=== PATIENT | male | born 1970 | race Caucasian/White ===

== ENCOUNTER 2023-05-01 15:44 | Inpatient (IN) ==
[2023-05-01] MEDS ORDERED: ONDANSETRON INJ 2 MG/ML 2 ML VIAL ONE (15:58)
[2023-05-01] MEDS ORDERED: ONDANSETRON INJ 2 MG/ML 2 ML VIAL IV STA (16:06)
[2023-05-01] MEDS ORDERED: SODIUM CHLORIDE 0.9% 500 ML IV STA (16:06)
[2023-05-01] MEDS ORDERED: LORazepam 2 MG/1 ML VIAL IV STA (16:17)
--- NOTE | 2023-05-01 16:23 | Emergency Department Note ---
Impression & Plan Cerebellar stroke, acute, Ataxia, Stroke-like symptom, Vertigo, Vomiting ED Provider Note NAME: JOHN PAUL ROY AGE: 53 SEX: M : 1970 ARRIVES VIA: Ambulance INFORMANT: Patient, EMS ED PROVIDER(S): Sukhi Peralta DO CHIEF COMPLAINT: Vomiting HPI: The patient is a 53-year-old male who presented to the emergency department for an evaluation of nausea vomiting. The patient states he was power washing at approximately 2 PM. He came inside and had an acute onset of nausea and vomiting. The patient notices that he has difficulty with balance. He denies having any abdominal pain or chest pain. He denies having any fever. He denies having lower extremity swelling or pain. He states his symptoms are moderate to severe. He was treated with Zofran prior to arrival by EMS and also by nursing prior to my evaluation. ROS: See above HPI for pertinent positives & negatives. A total of 10 systems reviewed and were otherwise negative. PAST MEDICAL HISTORY: See Below PAST SURGICAL HISTORY: See Below FAMILY HISTORY: See Below SOCIAL HISTORY: See Below HOME MEDICATIONS: See Below ALLERGIES: See Below VITALS: See Below PHYSICAL EXAMINATION: GENERAL: The patient is awake and alert. He is very anxious appearing. He is actively vomiting at times. EYES: The conjunctivae are clear. The pupils are round and reactive. Nystagmus was noted looking to the right. EARS, NOSE, MOUTH AND THROAT: The nose is without any evidence of any deformity. NECK: The neck is nontender and supple. RESPIRATORY: Normal respiratory effort is noted there is no evidence of wheezing rhonchi or rales CARDIOVASCULAR: Regular rate and rhythm noted there no murmurs rubs or gallops normal S1 normal S2. GASTROINTESTINAL: The abdomen is soft. Abdomen is nontender. MUSCULOSKELETAL/EXTREMITIES: There is no evidence of gross deformity full range of motion is noted in the hips and shoulders. SKIN: There is no obvious evidence of any rash. There are no petechiae, pallor or cyanosis noted. NEUROLOGIC: Patient is awake alert and oriented x3 strength is symmetric patellar reflexes are 2+ bilaterally. [id number] was normal. Gait was very ataxic falling to the right. There appeared to be a slight right-sided facial droop involving the corner of the mouth. MEDICAL DECISION MAKING: The patient is a 53-year-old male who presented to the emergency department with strokelike symptoms. The patient arrived via ambulance. He initially complained of nausea and vomiting. It was unclear but he was felt to be just suffering from vomiting. I evaluated the patient and felt the patient's symptoms could be secondary to stroke especially in the posterior fossa. The patient had trouble ambulating with ataxia. He also appeared to have a slight right-sided facial droop. The patient was made a stroke alert and went directly to CT. The patient was evaluated by the telestroke neurologist. He was felt to be a good candidate for TNK given his work-up as well as his debilitating findings. I discussed the patient's condition with the on-call [facility]. He was evaluated multiple times. Blood pressure was acceptable. Triage Nursing notes reviewed. Prior medical records reviewed Vital Signs: reviewed and remarkable for no significant abnormalities Differential diagnosis: Gastroenteritis, food borne illness, infections, appendicitis, diverticulitis, inflammatory bowel disease, obstruction, GI bleed, biliary pathology, volvulus, as well as other pathologies. ER treatment provided: See below Diagnostics interpreted by me: ECG: EKG was obtained in the emergency department. My interpretation is normal sinus rhythm at 64 bpm. There is no ectopy. There is no acute ST segment abnormalities noted. QTc was 472. No previous tracing was available. Cardiac Monitoring: An order was placed for continuous cardiac monitoring. The monitor shows a rate of 65 bpm with sinus rhythm. Laboratory studies: As stated above and show below. Imaging studies: See below. Radiographic imaging was reviewed by myself Consultation(s): I discussed this case with Dr. Hallman who is on for telestroke at [facility]. I discussed this case with Nilam who is on-call for the [facility] ED COURSE: Procedures: none Critical Care: I have personally spent greater than 45 minutes of critical care time in the direct management of this patient. This includes bedside care, interpretation of diagnostic studies, and testing, discussion with consultants, patient, and family members, and other required patient management activities. This 45 minutes is in excess of all separately billable procedures. Thrombolytics MDM Reason(s) for Delay: The patient arrived via ambulance for nausea and vomiting. It was not until the patient was evaluated by myself that he was felt to be suffering from strokelike symptoms. There was a delay in calling the stroke alert for this reason. The patient also required extensive discussion prior to administering TNK. There was discussion between myself the patient and Dr. Hallman at the same time given the patient's presentation he wanted to also discuss this with his children prior to receiving TNK. Ultimately the patient did agree to TNK and it was administered shortly after. Past Med/Surg History Medical History History of tobacco use Pancreatic mass Spinal stenosis Surgical History H/O splenectomy History of partial pancreatectomy History of tonsillectomy S/P cholecystectomy Family History Other Cancer Hypertension Social History Smoking Status: Never smoker Smoking End Date: 2020; Hx Alcohol Use: No Hx Substance Use: Yes Last Used Substance: Hours (ago) Last Used Substance Other:: 0900 used tincature drops Preferred Language: Moroccan Communication Ability: Effective Shipping Processor Required: No Beliefs That Will Affect Care: None Current Living Situation: Other Current Living Situation Comment: Lives with two children Other Information That Helps Us Care for You: No Feels Safe at Home: Yes Safety Concerns: Feels Safe At This Time Assistive Devices: None Allergies Allergies Allergy/AdvReac Type Severity Reaction Status Date / Time No Known Allergies Allergy Mild Verified 05/27/07 10:05 Home Meds Home Medications Medication Instructions Recorded Confirmed No Known Home Medications 05/01/23 05/01/23 Results & Data (ED) Vital Signs Vital Signs - 24 hr 05/01/23 16:07 05/01/23 16:07 05/01/23 16:07 Temperature 35.9 C L 35.9 C L Temperature Source Axillary Axillary Pulse Rate 74 Pulse Rate [Apical] Pulse Rate from SpO2 Sensor Respiratory Rate 20 20 Respiratory Effort / Characteristics Non-Labored Non-Labored Respiratory Depth Normal Normal Blood Pressure 134/73 Blood Pressure [Right Arm] Blood Pressure Mean 93 Blood Pressure Mean [Right Arm] Pulse Oximetry 99 99 99 Oxygen Delivery Method Room Air Room Air Room Air Sepsis Recent Fever Within 48 Hours No Sepsis New/Unexplained Change in Mental Status No Sepsis Action Taken by Nursing No Action Required 05/01/23 16:41 05/01/23 16:45 05/01/23 17:21 Temperature Temperature Source Pulse Rate 74 Pulse Rate [Apical] 75 78 Pulse Rate from SpO2 Sensor Respiratory Rate 20 20 Respiratory Effort / Characteristics Non-Labored Respiratory Depth Normal Blood Pressure Blood Pressure [Right Arm] 151/79 H 124/84 Blood Pressure Mean Blood Pressure Mean [Right Arm] 103 97 Pulse Oximetry 98 97 Oxygen Delivery Method Room Air Room Air Sepsis Recent Fever Within 48 Hours Sepsis New/Unexplained Change in Mental Status Sepsis Action Taken by Nursing 05/01/23 17:36 05/01/23 16:07 05/01/23 16:37 Temperature Temperature Source Pulse Rate 0 L Pulse Rate [Apical] 65 Pulse Rate from SpO2 Sensor 78 Respiratory Rate 20 27 H 37 H Respiratory Effort / Characteristics Non-Labored Respiratory Depth Normal Blood Pressure Blood Pressure [Right Arm] 105/67 Blood Pressure Mean Blood Pressure Mean [Right Arm] 79 Pulse Oximetry 94 99 Oxygen Delivery Method Room Air Sepsis Recent Fever Within 48 Hours Sepsis New/Unexplained Change in Mental Status Sepsis Action Taken by Nursing 05/01/23 16:39 05/01/23 16:39 05/01/23 16:45 Temperature Temperature Source Pulse Rate 81 76 Pulse Rate [Apical] Pulse Rate from SpO2 Sensor 82 Respiratory Rate 34 H 21 Respiratory Effort / Characteristics Respiratory Depth Blood Pressure 151/79 H Blood Pressure [Right Arm] Blood Pressure Mean 103 Blood Pressure Mean [Right Arm] Pulse Oximetry 100 Oxygen Delivery Method Sepsis Recent Fever Within 48 Hours Sepsis New/Unexplained Change in Mental Status Sepsis Action Taken by Nursing 05/01/23 17:04 05/01/23 17:15 05/01/23 17:17 Temperature Temperature Source Pulse Rate 64 64 Pulse Rate [Apical] Pulse Rate from SpO2 Sensor 65 62 Respiratory Rate 6 L 3 L Respiratory Effort / Characteristics Respiratory Depth Blood Pressure 150/88 H Blood Pressure [Right Arm] Blood Pressure Mean 108 Blood Pressure Mean [Right Arm] Pulse Oximetry 95 97 Oxygen Delivery Method Sepsis Recent Fever Within 48 Hours Sepsis New/Unexplained Change in Mental Status Sepsis Action Taken by Nursing 05/01/23 17:17 05/01/23 17:30 Temperature Temperature Source Pulse Rate 78 Pulse Rate [Apical] Pulse Rate from SpO2 Sensor 78 Respiratory Rate 22 Respiratory Effort / Characteristics Respiratory Depth Blood Pressure 124/84 Blood Pressure [Right Arm] Blood Pressure Mean 97 Blood Pressure Mean [Right Arm] Pulse Oximetry 98 Oxygen Delivery Method Sepsis Recent Fever Within 48 Hours Sepsis New/Unexplained Change in Mental Status Sepsis Action Taken by [facility]irement Medications Current Medication List: was personally reviewed by me Laboratory Data Attestation: I reviewed the patient's lab results. 05/01/23 14:20 05/01/23 14:20 Lab Results 05/01/23 05/01/23 05/01/23 Range/Units 14:20 14:20 14:20 WBC 13.68 H (4.8-10.8) K/ul RBC 4.20 L (4.70-6.10) M/uL Hgb 14.0 (14.0-18.0) g/dl POC Hgb (14.0-18.0) g/dl Hct 38.4 L (42.0-52.0) % POC Hct (42-52) % MCV 91.4 (80.0-100.0) fL MCH 33.3 (25.0-34.0) pg MCHC 36.5 H (32.0-36.0) g/dL RDW Std Deviation 41.2 (36.4-46.3) fL RDW Coeff of Josie 12.5 (11.5-14.5) % Plt Count 296 (130-400) K/uL MPV 9.7 (9.4-12.4) fL Immature Gran % (Auto) 0.4 % Neut % (Auto) 73.9 % Lymph % (Auto) 19.2 % Gilmer % (Auto) 5.8 % Eos % (Auto) 0.3 % Baso % (Auto) 0.4 % Neut # (Auto) 10.11 H (1.40-6.50) K/uL Lymph # (Auto) 2.63 (1.2-3.4) K/uL Gilmer # (Auto) 0.80 H (0.11-0.59) K/uL Eos # (Auto) 0.04 (0-0.50) K/uL Baso # (Auto) 0.05 (0-0.2) K/uL Immature Gran # (Auto) 0.05 (0.01-0.20) K/uL PT 11.5 (9.0-12.0) Seconds INR 1.1 (0.9-1.1) APTT 24.2 (21.0-31.0) Seconds PTT Ratio 0.9 POC Sodium (135-144) mmol/L Sodium 137 (136-145) mmol/L POC Potassium (3.3-5.0) mmol/L Potassium 3.5 (3.5-5.1) mmol/L POC Chloride (101-112) mmol/L Chloride 105 (98-107) mmol/L Carbon Dioxide 18 L (21-32) mmol/L POC Total CO2 (24-31) mmol/L Anion Gap 14 H (3-11) POC Anion Gap (16-25) mmol/L POC BUN (7-18) mg/dl BUN 9 (6-23) mg/dl Creatinine 0.84 (0.6-1.4) mg/dl POC Creatinine (0.6-1.3) mg/dl Est Cr Clr Drug Dosing 108.4 ml/min Est GFR ( Amer) 115.0 ml/min Est GFR (Non-Af Amer) 99.3 ml/min BUN/Creatinine Ratio 10.7 (10-20) Glucose 144 H (70-99(Fasting)) mg/dl POC Glucose (other) (70-99) mg/dl Calcium 9.1 (8.6-10.3) mg/dl POC Ioniz Calcium Scotty (1.12-1.32) mmol/l Magnesium 1.7 (1.7-2.4) mg/dl Total Bilirubin 0.8 (0.2-1.0) mg/dl AST 14 (13-39) U/L ALT 9 (7-52) U/L Alkaline Phosphatase 59 (34-104) U/L Troponin I High Sens 12.8 (0-20) pg/ml Total Protein 7.0 (6.0-8.3) gm/dl Albumin 4.1 (3.4-5.0) gm/dl Globulin 2.9 (2.5-4.0) gm/dl Albumin/Globulin Ratio 1.4 (0.9-2) Lipase 68 (11-82) U/L 05/01/23 Range/Units 16:23 WBC (4.8-10.8) K/ul RBC (4.70-6.10) M/uL Hgb (14.0-18.0) g/dl POC Hgb 13.9 L (14.0-18.0) g/dl Hct (42.0-52.0) % POC Hct 41 L (42-52) % MCV (80.0-100.0) fL MCH (25.0-34.0) pg MCHC (32.0-36.0) g/dL RDW Std Deviation (36.4-46.3) fL RDW Coeff of Josie (11.5-14.5) % Plt Count (130-400) K/uL MPV (9.4-12.4) fL Immature Gran % (Auto) % Neut % (Auto) % Lymph % (Auto) % Gilmer % (Auto) % Eos % (Auto) % Baso % (Auto) % Neut # (Auto) (1.40-6.50) K/uL Lymph # (Auto) (1.2-3.4) K/uL Gilmer # (Auto) (0.11-0.59) K/uL Eos # (Auto) (0-0.50) K/uL Baso # (Auto) (0-0.2) K/uL Immature Gran # (Auto) (0.01-0.20) K/uL PT (9.0-12.0) Seconds INR (0.9-1.1) APTT (21.0-31.0) Seconds PTT Ratio POC Sodium 138 (135-144) mmol/L Sodium (136-145) mmol/L POC Potassium 3.3 (3.3-5.0) mmol/L Potassium (3.5-5.1) mmol/L POC Chloride 105 (101-112) mmol/L Chloride (98-107) mmol/L Carbon Dioxide (21-32) mmol/L POC Total CO2 16 L (24-31) mmol/L Anion Gap (3-11) POC Anion Gap 22.0 (16-25) mmol/L POC BUN 8 (7-18) mg/dl BUN (6-23) mg/dl Creatinine (0.6-1.4) mg/dl POC Creatinine 0.8 (0.6-1.3) mg/dl Est Cr Clr Drug Dosing ml/min Est GFR ( Amer) ml/min Est GFR (Non-Af Amer) ml/min BUN/Creatinine Ratio (10-20) Glucose (70-99(Fasting)) mg/dl POC Glucose (other) 147 H (70-99) mg/dl Calcium (8.6-10.3) mg/dl POC Ioniz Calcium Scotty 1.00 L (1.12-1.32) mmol/l Magnesium (1.7-2.4) mg/dl Total Bilirubin (0.2-1.0) mg/dl AST (13-39) U/L ALT (7-52) U/L Alkaline Phosphatase (34-104) U/L Troponin I High Sens (0-20) pg/ml Total Protein (6.0-8.3) gm/dl Albumin (3.4-5.0) gm/dl Globulin (2.5-4.0) gm/dl Albumin/Globulin Ratio (0.9-2) Lipase (11-82) U/L Administered Medications Atorvastatin Calcium (Atorvastatin 40 Mg Tab) 40 mg PO HS [facility] Stop: 05/31/23 20:59 Last Admin: 05/01/23 19:21 Dose: 40 mg Documented By: CULLEN Magnesium Sulfate/Dextrose (Magnesium Sulfate / D5w) 1 gm in 100 mls @ 50 mls/hr IV Q2H [facility] Stop: 05/02/23 00:44 Last Admin: 05/01/23 19:14 Dose: 50 mls/hr Documented By: CULLEN Lactated Ringer's (Lr) 1,000 mls @ 90 mls/hr IV .Q11H7M [facility] Stop: 05/02/23 05:51 Last Admin: 05/01/23 19:14 Dose: 90 mls/hr Documented By: CULLEN Miscellaneous (Icu Protocol For Hyperglycemia) 1 each N/A ACHS [facility] Stop: 05/03/23 20:59 Last Admin: 05/01/23 20:05 Dose: 1 each Documented By: CULLEN Ondansetron HCl (Ondansetron Inj 2 Mg/Ml 2 Ml Vial) 4 mg IV Q4H PRN PRN Reason: Nausea Stop: 05/31/23 19:20 Last Admin: 05/01/23 19:55 Dose: 4 mg Documented By: CULLEN Discontinued Medications Gadobutrol (Gadobutrol 65ml Vial) 7 ml IV ONCE ONE Stop: 05/01/23 21:49 Last Admin: 05/01/23 21:30 Dose: 7 ml Documented By: FRENANDO Sodium Chloride (Nss) 500 mls @ 999 mls/hr IV .Q31M STA Stop: 05/01/23 16:36 Last Infusion: 05/01/23 16:44 Dose: 0 mls/hr Documented By: Admin: 05/01/23 16:10 Dose: 999 mls/hr Documented By: LILLIAN Tenecteplase 19 mg/ Syringe 3.8 mls @ 45.6 mls/min IV NOW ONE; Protocol Stop: 05/01/23 17:23 Last Admin: 05/01/23 17:20 Dose: 45.6 mls/min Documented By: PATEL Co-signed By: LEAH Ioversol (Ioversol 350 Mg 125ml Prefilled Syringe) 111 ml IV ONCE ONE Stop: 05/01/23 16:34 Last Admin: 05/01/23 16:33 Dose: 111 ml Documented By: CAROLE Lorazepam (Lorazepam 2 Mg/1 Ml Vial) 1 mg IV NOW STA Stop: 05/01/23 16:18 Last Admin: 05/01/23 16:36 Dose: 0.5 mg Documented By: LILLIAN Miscellaneous (Stat Iv) 1 each N/A NOW STA Stop: 05/01/23 17:13 Last Admin: 05/01/23 17:20 Dose: 1 each Documented By: PATEL Ondansetron HCl (Ondansetron Inj 2 Mg/Ml 2 Ml Vial) Confirm Administered Dose 4 mg .ROUTE .STK-MED ONE Stop: 05/01/23 15:59 Last Admin: 05/01/23 16:04 Dose: 4 mg Documented By: PATEL Ondansetron HCl (Ondansetron Inj 2 Mg/Ml 2 Ml Vial) 4 mg IV NOW STA Stop: 05/01/23 16:07 Last Admin: 05/01/23 16:10 Dose: 4 mg Documented By: LILLIAN Potassium Chloride (Potassium Chloride Crtab 20 Meq Tabcr) 20 meq PO NOW STA Stop: 05/01/23 19:15 Last Admin: 05/01/23 19:56 Dose: 20 meq Documented By: CULLEN Sodium Chloride (Sodium Chloride 0.9% 10ml Flush) 20 ml IV NOW STA Stop: 05/01/23 17:13 Last Admin: 05/01/23 17:20 Dose: 20 ml Documented By: PATEL Imaging Data Attestation: I personally reviewed and interpreted this imaging study as follows: My Impression: 1 view chest x-ray was obtained in the emergency department was obtained. My interpretation is no free air or definite infiltrate, final report below CT of the brain was obtained in the emergency department. My interpretation is no intracranial hemorrhage or mass effect, final report below. Radiologist's Impression: Chest X-Ray 05/01/23 16:15 XR chest 1V portable CLINICAL HISTORY: neuro deficit, acute stroke suspected TECHNIQUE: Single frontal radiograph of the chest was obtained. Comparison: None available at the time of this dictation. FINDINGS: No lines and tubes are seen. The cardiomediastinal silhouette is normal. The lungs are clear. No evidence of pleural effusion or pneumothorax. IMPRESSION: No acute chest disease. ACT 112: Negative or not required by law. Electronically signed by: Steven Garcia M.D. 05/01/2023 5:[address] 05/01/23 16:[address] OF THE BRAIN; CT ANGIOGRAM OF THE BRAIN; CT ANGIOGRAM OF THE NECK CLINICAL HISTORY: Neurological deficit. Stroke like symptoms. COMPARISON STUDY: No priors. TECHNIQUE: Unenhanced axial CT scan of the brain is performed. Subsequently, following the IV administration of 111 of Optiray 350, CT angiogram of the head and neck was performed from the aortic arch to the vertex. Images are reviewed in the axial, sagittal, and coronal planes. 3-D MIPS images are created and assessed. IV contrast was administered without complication. All measurements were calculated based on NASCET criteria. A dose lowering technique was utilized adhering to the principles of ALARA. CT DOSE: 1294.17 mGy.cm FINDINGS: Brain parenchyma: There is no hemorrhage, mass effect, or evidence of acute t erritorial ischemia by CT criteria. There is no evidence of enhancing mass lesion on the angiogram phase images. The ventricles, sulci, and cisterns are normal in configuration. Cisneros-white matter differentiation is preserved. There is a small chronic lacunar infarct in the left cerebellar hemisphere. No extra- axial fluid collection is seen. Thoracic aorta: Visualized portions of the thoracic aorta are normal in caliber. The aortic arch demonstrates standard 3-vessel anatomy. Right carotid arterial system: The right common carotid artery is widely patent, as are the right internal and external carotid arteries. Left carotid arterial system: The left common carotid artery is widely patent, as is the left internal and external carotid arteries. Vertebral arteries: The vertebral arteries are widely patent bilaterally noting right-sided dominance. The left vertebral artery is diminutive. Subclavian arteries: Widely patent bilaterally. Intracranial vasculature: There is moderate atherosclerotic calcification of the cavernous carotid arteries. The [place] of [place] is developmentally complete. The internal carotid arteries are patent at the skull base, as are the anterior and middle cerebral arteries bilaterally. The vertebrobasilar system and posterior cerebral arteries are widely patent. The right vertebral artery is dominant. The intracranial left vertebral artery is diminutive. There is no aneurysm, high-grade stenosis, or focal vessel cut off seen throughout the intracranial circulation. Jugular veins: Patent bilaterally. Dural sinuses: Patent. Lung apices: Partially visualized upper lobe lung parenchyma appears clear. Soft tissues: The visualized pharyngeal soft tissues are normal in appearance noting angiographic phase technique. The oropharyngeal airway appears widely patent. There are numerous bilateral thyroid nodules which measure up to 2.0 cm. Calcified sialoliths are noted in the right parotid gland. The salivary glands are otherwise normal in appearance. No cervical lymphadenopathy is seen. Skeletal structures: The calvarium appears intact. The cervical spine is maintained noting mild multilevel spondylosis. Orbits: The bony orbits are intact. Orbital contents are normal as visualized. Sinuses and mastoids: Retention cysts within the maxillary antra measure up to 3.2 cm. The remaining paranasal sinuses are clear. The mastoid air cells are well pneumatized. IMPRESSION: 1. There is no hemorrhage, mass effect, or evidence of acute territorial ischem ia by CT criteria. 2. Unremarkable CT angiogram of the brain. 3. Unremarkable CT angiogram of the neck. 4. Bilateral thyroid nodules measure up to 2 cm. Nonemergent thyroid ultrasound is recommended in follow-up. ACT 112: Negative or not required by law. Electronically signed by: Mac Killian M.D. 05/01/2023 4:52 PM Head CTA 05/01/23 16:[address] OF THE BRAIN; CT ANGIOGRAM OF THE BRAIN; CT ANGIOGRAM OF THE NECK CLINICAL HISTORY: Neurological deficit. Stroke like symptoms. COMPARISON STUDY: No priors. TECHNIQUE: Unenhanced axial CT scan of the brain is performed. Subsequently, following the IV administration of 111 of Optiray 350, CT angiogram of the head and neck was performed from the aortic arch to the vertex. Images are reviewed in the axial, sagittal, and coronal planes. 3-D MIPS images are created and assessed. IV contrast was administered without complication. All measurements were calculated based on NASCET criteria. A dose lowering technique was utilized adhering to the principles of ALARA. CT DOSE: 1294.17 mGy.cm FINDINGS: Brain parenchyma: There is no hemorrhage, mass effect, or evidence of acute territorial ischemia by CT criteria. There is no evidence of enhancing mass lesion on the angiogram phase images. The ventricles, sulci, and cisterns are normal in configuration. Cisneros-white matter differentiation is preserved. There is a small chronic lacunar infarct in the left cerebellar hemisphere. No extra- axial fluid collection is seen. Thoracic aorta: Visualized portions of the thoracic aorta are normal in caliber. The aortic arch demonstrates standard 3-vessel anatomy. Right carotid arterial system: The right common carotid artery is widely patent, as are the right internal and external carotid arteries. Left carotid arterial system: The left common carotid artery is widely patent, as is the left internal and external carotid arteries. Vertebral arteries: The vertebral arteries are widely patent bilaterally noting right-sided dominance. The left vertebral artery is diminutive. Subclavian arteries: Widely patent bilaterally. Intracranial vasculature: There is moderate atherosclerotic calcification of the cavernous carotid arteries. The [place] of [place] is developmentally complete. The internal carotid arteries are patent at the skull base, as are the anterior and middle cerebral arteries bilaterally. The vertebrobasilar system and posterior cerebral arteries are widely patent. The right vertebral artery is dominant. The intracranial left vertebral artery is diminutive. There is no aneurysm, high-grade stenosis, or focal vessel cut off seen throughout the intracranial circulation. Jugular veins: Patent bilaterally. Dural sinuses: Patent. Lung apices: Partially visualized upper lobe lung parenchyma appears clear. Soft tissues: The visualized pharyngeal soft tissues are normal in appearance noting angiographic phase technique. The oropharyngeal airway appears widely patent. There are numerous bilateral thyroid nodules which measure up to 2.0 cm. Calcified sialoliths are noted in the right parotid gland. The salivary glands are otherwise normal in appearance. No cervical lymphadenopathy is seen. Skeletal structures: The calvarium appears intact. The cervical spine is maintained noting mild multilevel spondylosis. Orbits: The bony orbits are intact. Orbital contents are normal as visualized. Sinuses and mastoids: Retention cysts within the maxillary antra measure up to 3.2 cm. The remaining paranasal sinuses are clear. The mastoid air cells are well pneumatized. IMPRESSION: 1. There is no hemorrhage, mass effect, or evidence of acute territorial ischemia by CT criteria. 2. Unremarkable CT angiogram of the brain. 3. Unremarkable CT angiogram of the neck. 4. Bilateral thyroid nodules measure up to 2 cm. Nonemergent thyroid ultrasound is recommended in follow-up. ACT 112: Negative or not required by law. Electronically signed by: Mac Killian M.D. 05/01/2023 4:52 PM Neck CTA 05/01/23 16:15 UNENHANCED CT OF THE BRAIN; CT ANGIOGRAM OF THE BRAIN; CT ANGIOGRAM OF THE NECK CLINICAL HISTORY: Neurological deficit. Stroke like symptoms. COMPARISON STUDY: No priors. TECHNIQUE: Unenhanced axial CT scan of the brain is performed. Subsequently, following the IV administration of 111 of Optiray 350, CT angiogram of the head and neck was performed from the aortic arch to the vertex. Images are reviewed in the axial, sagittal, and coronal planes. 3-D MIPS images are created and as sessed. IV contrast was administered without complication. All measurements were calculated based on NASCET criteria. A dose lowering technique was utilized adhering to the principles of ALARA. CT DOSE: 1294.17 mGy.cm FINDINGS: Brain parenchyma: There is no hemorrhage, mass effect, or evidence of acute territorial ischemia by CT criteria. There is no evidence of enhancing mass lesion on the angiogram phase images. The ventricles, sulci, and cisterns are normal in configuration. Cisneros-white matter differentiation is preserved. There is a small chronic lacunar infarct in the left cerebellar hemisphere. No extra-axial fluid collection is seen. Thoracic aorta: Visualized portions of the thoracic aorta are normal in caliber. The aortic arch demonstrates standard 3-vessel anatomy. Right carotid arterial system: The right common carotid artery is widely patent, as are the right internal and external carotid arteries. Left carotid arterial system: The left common carotid artery is widely patent, as is the left internal and external carotid arteries. Vertebral arteries: The vertebral arteries are widely patent bilaterally noting right-sided dominance. The left vertebral artery is diminutive. Subclavian arteries: Widely patent bilaterally. Intracranial vasculature: There is moderate atherosclerotic calcification of the cavernous carotid arteries. The [place] of [place] is developmentally complete. The internal carotid arteries are patent at the skull base, as are the anterior and middle cerebral arteries bilaterally. The vertebrobasilar system and post erior cerebral arteries are widely patent. The right vertebral artery is dominant. The intracranial left vertebral artery is diminutive. There is no aneurysm, high-grade stenosis, or focal vessel cut off seen throughout the intracranial circulation. Jugular veins: Patent bilaterally. Dural sinuses: Patent. Lung apices: Partially visualized upper lobe lung parenchyma appears clear. Soft tissues: The visualized pharyngeal soft tissues are normal in appearance noting angiographic phase technique. The oropharyngeal airway appears widely patent. There are numerous bilateral thyroid nodules which measure up to 2.0 cm. Calcified sialoliths are noted in the right parotid gland. The salivary glands are otherwise normal in appearance. No cervical lymphadenopathy is seen. Skeletal structures: The calvarium appears intact. The cervical spine is maintained noting mild multilevel spondylosis. Orbits: The bony orbits are intact. Orbital contents are normal as visualized. Sinuses and mastoids: Retention cysts within the maxillary antra measure up to 3.2 cm. The remaining paranasal sinuses are clear. The mastoid air cells are well pneumatized. IMPRESSION: 1. There is no hemorrhage, mass effect, or evidence of acute territorial ischemia by CT criteria. 2. Unremarkable CT angiogram of the brain. 3. Unremarkable CT angiogram of the neck. 4. Bilateral thyroid nodules measure up to 2 cm. Nonemergent thyroid ultrasound is recommended in follow-up. ACT 112: Negative or not required by law. Electronically signed by: Mac Killian M.D. 05/01/2023 4:52 PM Discharge Plan Visit Data Chief Complaint: Weakness ED Provider: Sukhi Peralta Discharge Problem: Cerebellar stroke, acute, Ataxia, Stroke-like symptom, Vertigo, Vomiting Patient Disposition: Admitted As Inpatient Discharge Instructions Interventions: ED Discharge Assessment Last Done: 05/01/23 18:05
[2023-05-01] MEDS ORDERED: IOVERSOL 350 MG 125mL Prefilled Syringe IV ONE (16:33)
[2023-05-01 16:39] LABS: Basophils # (auto) 0.05 K/uL (0-0.2); Basophils % (auto) 0.4 %; Eosinophils # (auto) 0.04 K/uL (0-0.50); Eosinophils % (auto) 0.3 %; Hematocrit (blood only) 38.4 % (42.0-52.0); Immature Granulocytes # (auto) 0.05 K/uL (0.01-0.20); Immature Granulocytes % (auto) 0.4 %; Lymphocytes # (auto) 2.63 K/uL (1.2-3.4); Lymphocytes % (auto) 19.2 %; Mean Corpuscular Hemoglobin 33.3 pg (25.0-34.0); Mean Corpuscular Hgb Conc 36.5 g/dL (32.0-36.0); Mean Corpuscular Volume 91.4 fL (80.0-100.0); Mean Platelet Volume 9.7 fL (9.4-12.4); Monocytes % (auto) 5.8 %; Neutrophils # (auto) 10.11 K/uL (1.40-6.50); Neutrophils % (auto) 73.9 %; Platelet Count 296 K/uL (130-400); RDW Coefficient of Variation 12.5 % (11.5-14.5); RDW Standard Deviation 41.2 fL (36.4-46.3); White Blood Count 13.68 K/ul (4.8-10.8)
[2023-05-01 16:52] LABS: Appearance Urine Clear (Clear); Bilirubin Urine Negative (Negative); Blood Urine Negative (Negative); Color Urine Yellow; Glucose Urine UA Negative (Negative); Ketones Urine 1+ (Negative); Leukocyte Esterase Urine Negative (Negative); Nitrite Urine Negative (Negative); Protein Urine Negative (Negative); Specific Gravity Urine 1.012 (1.000-1.030); Urobilinogen Urine Negative (Negative)
--- NOTE | 2023-05-01 16:53 | CT Scan Report ---
UNENHANCED CT OF THE BRAIN; CT ANGIOGRAM OF THE BRAIN; CT ANGIOGRAM OF THE NECK CLINICAL HISTORY: Neurological deficit. Stroke like symptoms. COMPARISON STUDY: No priors. TECHNIQUE: Unenhanced axial CT scan of the brain is performed. Subsequently, following the IV adminis tration of 111 of Optiray 350, CT angiogram of the head and neck was performed from the aortic arch t o the vertex. Images are reviewed in the axial, sagittal, and coronal planes. 3-D MIPS images are cre ated and assessed. IV contrast was administered without complication. All measurements were calculate d based on NASCET criteria. A dose lowering technique was utilized adhering to the principles of ALA RA. CT DOSE: 1294.17 mGy.cm FINDINGS: Brain parenchyma: There is no hemorrhage, mass effect, or evidence of acute territorial ischemia by C T criteria. There is no evidence of enhancing mass lesion on the angiogram phase images. The ventricl es, sulci, and cisterns are normal in configuration. Cisneros-white matter differentiation is preserved. There is a small chronic lacunar infarct in the left cerebellar hemisphere. No extra-axial fluid leonard ection is seen. Thoracic aorta: Visualized portions of the thoracic aorta are normal in caliber. The aortic arch demo nstrates standard 3-vessel anatomy. Right carotid arterial system: The right common carotid artery is widely patent, as are the right int ernal and external carotid arteries. Left carotid arterial system: The left common carotid artery is widely patent, as is the left interna l and external carotid arteries. Vertebral arteries: The vertebral arteries are widely patent bilaterally noting right-sided dominance . The left vertebral artery is diminutive. Subclavian arteries: Widely patent bilaterally. Intracranial vasculature: There is moderate atherosclerotic calcification of the cavernous carotid ar teries. The [place] of [place] is developmentally complete. The internal carotid arteries are patent at the skull base, as are the anterior and middle cerebral arteries bilaterally. The vertebrobasilar sy stem and posterior cerebral arteries are widely patent. The right vertebral artery is dominant. The i ntracranial left vertebral artery is diminutive. There is no aneurysm, high-grade stenosis, or focal vessel cut off seen throughout the intracranial circulation. Jugular veins: Patent bilaterally. Dural sinuses: Patent. Lung apices: Partially visualized upper lobe lung parenchyma appears clear. Soft tissues: The visualized pharyngeal soft tissues are normal in appearance noting angiographic pha se technique. The oropharyngeal airway appears widely patent. There are numerous bilateral thyroid no dules which measure up to 2.0 cm. Calcified sialoliths are noted in the right parotid gland. The sali vary glands are otherwise normal in appearance. No cervical lymphadenopathy is seen. Skeletal structures: The calvarium appears intact. The cervical spine is maintained noting mild multi level spondylosis. Orbits: The bony orbits are intact. Orbital contents are normal as visualized. Sinuses and mastoids: Retention cysts within the maxillary antra measure up to 3.2 cm. The remaining paranasal sinuses are clear. The mastoid air cells are well pneumatized. IMPRESSION: 1. There is no hemorrhage, mass effect, or evidence of acute territorial ischemia by CT criteria. 2. Unremarkable CT angiogram of the brain. 3. Unremarkable CT angiogram of the neck. 4. Bilateral thyroid nodules measure up to 2 cm. Nonemergent thyroid ultrasound is recommended in fol low-up. ACT 112: Negative or not required by law. Electronically signed by: Mac Killian M.D. 05/01/2023 4:52 PM
[2023-05-01 16:59] LABS: iSTAT Creatinine 0.8 mg/dl (0.6-1.3); iSTAT Hemoglobin 13.9 g/dl (14.0-18.0); iSTAT Potassium 3.3 mmol/L (3.3-5.0)
[2023-05-01 17:06] LABS: Albumin Globulin Ratio 1.4 (0.9-2); Albumin Level 4.1 gm/dl (3.4-5.0); BUN Creatinine Ratio 10.7 (10-20); Bilirubin,Total 0.8 mg/dl (0.2-1.0); Calcium 9.1 mg/dl (8.6-10.3); Creatinine Clr Calc Pharmacy 108.4 ml/min; Est GFR (Non-African American) 99.3 ml/min; Globulin 2.9 gm/dl (2.5-4.0); Magnesium 1.7 mg/dl (1.7-2.4); Potassium 3.5 mmol/L (3.5-5.1)
[2023-05-01 17:10] LABS: INR 1.1 (0.9-1.1); Partial Thromboplastin Ratio 0.9; Partial Thromboplastin Time 24.2 Seconds (21.0-31.0); Prothrombin Time 11.5 Seconds (9.0-12.0)
[2023-05-01 17:11] LABS: Troponin I High Sensitivity 12.8 pg/ml (0-20)
[2023-05-01] MEDS ORDERED: STAT IV STA (17:12)
[2023-05-01] MEDS ORDERED: SODIUM CHLORIDE 0.9% 10ML FLUSH IV STA (17:12)
[2023-05-01] MEDS ORDERED: No Aspirin within 24hrs of THROMBOLYTIC-Stroke PO SCH (17:15)
[2023-05-01] MEDS ORDERED: TENECTEPLASE 19 MG in SYRINGE 0 ML IV ONE (17:22)
--- NOTE | 2023-05-01 17:48 | XRay Report ---
XR chest 1V portable CLINICAL HISTORY: neuro deficit, acute stroke suspected TECHNIQUE: Single frontal radiograph of the chest was obtained. Comparison: None available at the time of this dictation. FINDINGS: No lines and tubes are seen. The cardiomediastinal silhouette is normal. The lungs are clear. No evid ence of pleural effusion or pneumothorax. IMPRESSION: No acute chest disease. ACT 112: Negative or not required by law. Electronically signed by: Steven Garcia M.D. 05/01/2023 5:47 PM
--- NOTE | 2023-05-01 17:54 | History & Physical Report ---
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 Strokelike symptoms s/p TNK Developed dizziness, nausea and vomiting around 1400 today, came to ED and received TNK around 1715 Lab work and imaging reviewed: CT head without acute intracranial abnormality, CTA head/neck without hemorrhage, mass effect, or evidence of acute territorial ischemia by CT criteria Admitting to ICU for further observation and management - Dr. Palomares aware Brain MRI w/wo, bubble study, a1c and lipids pending PRN labetalol to keep BP at goal <185/110 No aspirin for 24 hrs, adding statin PT, OT, speech evaluations per protocol Routine neuro consult (4) History of tobacco use: Plan: Quit 2.5 years ago (5) Spinal stenosis: Plan: PRN Tylenol Code status: FULL PCP: [facility] Dispo: Admitted to ICU Patient seen in collaboration with Dr. Vu. Please see addendum. 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 Was outside power washing and came inside to have some water and developed sudden onset dizziness, nausea and vomiting when he stood up. Also felt off balance. Was brought in by EMS and was seen in the ED as a stroke alert. Evaluated by Dr. Hallman who is on for telestroke at [facility] who recommended administration of TNK. Currently feels generally weak but denies any F/C, headache, CP, SOB, N/V, abdominal pain, dysuria, diarrhea or constipation. Only home medications include PRN Tylenol and ibuprofen. Quit smoking 2.5 years ago. No personal or known family history of stroke. Allergies Allergy/AdvReac Type Severity Reaction Status Date / Time No Known Allergies Allergy Mild Verified 05/27/07 10:05 Home Medications Medication Instructions Recorded Confirmed Type No Known Home Medications 05/01/23 05/01/23 History Past Med/Surg History Medical History History of tobacco use Pancreatic mass Spinal stenosis Surgical History H/O splenectomy History of partial pancreatectomy History of tonsillectomy S/P cholecystectomy Family History Other Cancer Hypertension Social History Smoking Status: Never smoker Smoking End Date: 2020; Hx Alcohol Use: No Hx Substance Use: Yes Last Used Substance: Hours (ago) Last Used Substance Other:: 09 used tincature drops Preferred Language: [place] Communication Ability: Effective 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 Physical Exam Physical Exam: Please see Dr. Vu' addendum for physical exam. Results & Data Results & Data Vital Signs (Past 12 Hours) Vital Signs Temp Pulse Pulse Resp BP BP Pulse Ox 05/01/23 17:36 65 20 105/67 94 05/01/23 17:21 78 20 124/84 97 05/01/23 16:45 75 20 151/79 H 98 05/01/23 16:41 74 05/01/23 16:07 35.9 C L 20 99 05/01/23 16:07 99 05/01/23 16:07 35.9 C L 74 20 134/73 99 O2 Del Method 05/01/23 17:36 Room Air 05/01/23 17:21 Room Air 05/01/23 16:45 Room Air 05/01/23 16:41 05/01/23 16:07 Room Air 05/01/23 16:07 Room Air 05/01/23 16:07 Room Air Laboratory Results Short CBC 05/01/23 Range/Units 14:20 WBC 13.68 H (4.8-10.8) K/ul Hgb 14.0 (14.0-18.0) g/dl Hct 38.4 L (42.0-52.0) % Plt Count 296 (130-400) K/uL BMP 05/01/23 14:20 Sodium 137 Potassium 3.5 Chloride 105 Carbon Dioxide 18 L BUN 9 Creatinine 0.84 Glucose 144 H Calcium 9.1 Liver Function 05/01/23 Range/Units 14:20 Total Bilirubin 0.8 (0.2-1.0) mg/dl AST 14 (13-39) U/L ALT 9 (7-52) U/L Alkaline Phosphatase 59 (34-104) U/L Albumin 4.1 (3.4-5.0) gm/dl Urine 05/01/23 Range/Units Unknown Urine Color Yellow Urine Appearance Clear (Clear) Urine pH 7.0 (4.5-7.5) Ur Specific [place] 1.012 (1.000-1.030) Urine Protein Negative (Negative) Urine Glucose (UA) Negative (Negative) Diagnostic Findings Chest X-Ray 05/01/23 16:15 XR chest 1V portable CLINICAL HISTORY: neuro deficit, acute stroke suspected TECHNIQUE: Single frontal radiograph of the chest was obtained. Comparison: None available at the time of this dictation. FINDINGS: No lines and tubes are seen. The cardiomediastinal silhouette is normal. The lungs are clear. No evidence of pleural effusion or pneumothorax. IMPRESSION: No acute chest disease. ACT 112: Negative or not required by law. Electronically signed by: Steven Garcia M.D. 05/01/2023 5:[address] 05/01/23 16:[address] OF THE BRAIN; CT ANGIOGRAM OF THE BRAIN; CT ANGIOGRAM OF THE NECK CLINICAL HISTORY: Neurological deficit. Stroke like symptoms. COMPARISON STUDY: No priors. TECHNIQUE: Unenhanced axial CT scan of the brain is performed. Subsequently, following the IV administration of 111 of Optiray 350, CT angiogram of the head and neck was performed from the aortic arch to the vertex. Images are reviewed in the axial, sagittal, and coronal planes. 3-D MIPS images are created and assessed. IV contrast was administered without complication. All measurements were calculated based on NASCET criteria. A dose lowering technique was utilized adhering to the principles of ALARA. CT DOSE: 1294.17 mGy.cm FINDINGS: Brain parenchyma: There is no hemorrhage, mass effect, or evidence of acute territorial ischemia by CT criteria. There is no evidence of enhancing mass lesion on the angiogram phase images. The ventricles, sulci, and cisterns are normal in configuration. Cisneros-white matter differentiation is preserved. There is a small chronic lacunar infarct in the left cerebellar hemisphere. No extra- axial fluid collection is seen. Thoracic aorta: Visualized portions of the thoracic aorta are normal in caliber. The aortic arch demonstrates standard 3-vessel anatomy. Right carotid arterial system: The right common carotid artery is widely patent, as are the right internal and external carotid arteries. Left carotid arterial system: The left common carotid artery is widely patent, as is the left internal and external carotid arteries. Vertebral arteries: The vertebral arteries are widely patent bilaterally noting right-sided dominance. The left vertebral artery is diminutive. Subclavian arteries: Widely patent bilaterally. Intracranial vasculature: There is moderate atherosclerotic calcification of the cavernous carotid arteries. The [place] is developmentally complete. The internal carotid arteries are patent at the skull base, as are the anterior and middle cerebral arteries bilaterally. The vertebrobasilar system and posterior cerebral arteries are widely patent. The right vertebral artery is dominant. The intracranial left vertebral artery is diminutive. There is no aneurysm, high-grade stenosis, or focal vessel cut off seen throughout the intracranial circulation. Jugular veins: Patent bilaterally. Dural sinuses: Patent. Lung apices: Partially visualized upper lobe lung parenchyma appears clear. Soft tissues: The visualized pharyngeal soft tissues are normal in appearance noting angiographic phase technique. The oropharyngeal airway appears widely p atent. There are numerous bilateral thyroid nodules which measure up to 2.0 cm. Calcified sialoliths are noted in the right parotid gland. The salivary glands are otherwise normal in appearance. No cervical lymphadenopathy is seen. Skeletal structures: The calvarium appears intact. The cervical spine is maintained noting mild multilevel spondylosis. Orbits: The bony orbits are intact. Orbital contents are normal as visualized. Sinuses and mastoids: Retention cysts within the maxillary antra measure up to 3.2 cm. The remaining paranasal sinuses are clear. The mastoid air cells are well pneumatized. IMPRESSION: 1. There is no hemorrhage, mass effect, or evidence of acute territorial ischemia by CT criteria. 2. Unremarkable CT angiogram of the brain. 3. Unremarkable CT angiogram of the neck. 4. Bilateral thyroid nodules measure up to 2 cm. Nonemergent thyroid ultrasound is recommended in follow-up. ACT 112: Negative or not required by law. Electronically signed by: Mac Killian M.D. 05/01/2023 4:52 PM Head CTA 05/01/23 16:[address] OF THE BRAIN; CT ANGIOGRAM OF THE BRAIN; CT ANGIOGRAM OF THE NECK CLINICAL HISTORY: Neurological deficit. Stroke like symptoms. COMPARISON STUDY: No priors. TECHNIQUE: Unenhanced axial CT scan of the brain is performed. Subsequently, following the IV administration of 111 of Optiray 350, CT angiogram of the head and neck was performed from the aortic arch to the vertex. Images are reviewed in the axial, sagittal, and coronal planes. 3-D MIPS images are created and assessed. IV contrast was administered without complication. All measurements were calculated based on NASCET criteria. A dose lowering technique was utilized adhering to the principles of ALARA. CT DOSE: 1294.17 mGy.cm FINDINGS: Brain parenchyma: There is no hemorrhage, mass effect, or evidence of acute territorial ischemia by CT criteria. There is no evidence of enhancing mass lesion on the angiogram phase images. The ventricles, sulci, and cisterns are normal in configuration. Cisneros-white matter differentiation is preserved. There is a small chronic lacunar infarct in the left cerebellar hemisphere. No extra- axial fluid collection is seen. Thoracic aorta: Visualized portions of the thoracic aorta are normal in caliber. The aortic arch demonstrates standard 3-vessel anatomy. Right carotid arterial system: The right common carotid artery is widely patent, as are the right internal and external carotid arteries. Left carotid arterial system: The left common carotid artery is widely patent, as is the left internal and external carotid arteries. Vertebral arteries: The vertebral arteries are widely patent bilaterally noting right-sided dominance. The left vertebral artery is diminutive. Subclavian arteries: Widely patent bilaterally. Intracranial vasculature: There is moderate atherosclerotic calcification of the cavernous carotid arteries. The [place] is developmentally complete. The internal carotid arteries are patent at the skull base, as are the anterior and middle cerebral arteries bilaterally. The vertebrobasilar system and posterior cerebral arteries are widely patent. The right vertebral artery is dominant. The intracranial left vertebral artery is diminutive. There is no aneurysm, high-grade stenosis, or focal vessel cut off seen throughout the i ntracranial circulation. Jugular veins: Patent bilaterally. Dural sinuses: Patent. Lung apices: Partially visualized upper lobe lung parenchyma appears clear. Soft tissues: The visualized pharyngeal soft tissues are normal in appearance noting angiographic phase technique. The oropharyngeal airway appears widely patent. There are numerous bilateral thyroid nodules which measure up to 2.0 cm. Calcified sialoliths are noted in the right parotid gland. The salivary glands are otherwise normal in appearance. No cervical lymphadenopathy is seen. Skeletal structures: The calvarium appears intact. The cervical spine is maintained noting mild multilevel spondylosis. Orbits: The bony orbits are intact. Orbital contents are normal as visualized. Sinuses and mastoids: Retention cysts within the maxillary antra measure up to 3.2 cm. The remaining paranasal sinuses are clear. The mastoid air cells are well pneumatized. IMPRESSION: 1. There is no hemorrhage, mass effect, or evidence of acute territorial ischemia by CT criteria. 2. Unremarkable CT angiogram of the brain. 3. Unremarkable CT angiogram of the neck. 4. Bilateral thyroid nodules measure up to 2 cm. Nonemergent thyroid ultrasound is recommended in follow-up. ACT 112: Negative or not required by law. Electronically signed by: Mac Killian M.D. 05/01/2023 4:52 PM Neck CTA 05/01/23 16:[address] OF THE BRAIN; CT ANGIOGRAM OF THE BRAIN; CT ANGIOGRAM OF THE NECK CLINICAL HISTORY: Neurological deficit. Stroke like symptoms. COMPARISON STUDY: No priors. TECHNIQUE: Unenhanced axial CT scan of the brain is performed. Subsequently, following the IV administration of 111 of Optiray 350, CT angiogram of the head and neck was performed from the aortic arch to the vertex. Images are reviewed in the axial, sagittal, and coronal planes. 3-D MIPS images are created and assessed. IV contrast was administered without complication. All measurements were calculated based on NASCET criteria. A dose lowering technique was utilized adhering to the principles of ALARA. CT DOSE: 1294.17 mGy.cm FINDINGS: Brain parenchyma: There is no hemorrhage, mass effect, or evidence of acute territorial ischemia by CT criteria. There is no evidence of enhancing mass lesion on the angiogram phase images. The ventricles, sulci, and cisterns are normal in configuration. Cisneros-white matter differentiation is preserved. There is a small chronic lacunar infarct in the left cerebellar hemisphere. No extra- axial fluid collection is seen. Thoracic aorta: Visualized portions of the thoracic aorta are normal in caliber. The aortic arch demonstrates standard 3-vessel anatomy. Right carotid arterial system: The right common carotid artery is widely patent, as are the right internal and external carotid arteries. Left carotid arterial system: The left common carotid artery is widely patent, as is the left internal and external carotid arteries. Vertebral arteries: The vertebral arteries are widely patent bilaterally noting right-sided dominance. The left vertebral artery is diminutive. Subclavian arteries: Widely patent bilaterally. Intracranial vasculature: There is moderate atherosclerotic calcification of the cavernous carotid arteries. The [place] is developmentally complete. The internal carotid arteries are patent at the skull base, as are the anterior and middle cerebral arteries bilaterally. The vertebrobasilar system and posterior cerebral arteries are widely patent. The right vertebral artery is dominant. The intracranial left vertebral artery is diminutive. There is no aneurysm, high-grade stenosis, or focal vessel cut off seen throughout the intracranial circulation. Jugular veins: Patent bilaterally. Dural sinuses: Patent. Lung apices: Partially visualized upper lobe lung parenchyma appears clear. Soft tissues: The visualized pharyngeal soft tissues are normal in appearance noting angiographic phase technique. The oropharyngeal airway appears widely patent. There are numerous bilateral thyroid nodules which measure up to 2.0 cm. Calcified sialoliths are noted in the right parotid gland. The salivary glands are otherwise normal in appearance. No cervical lymphadenopathy is seen. Skeletal structures: The calvarium appears intact. The cervical spine is maintained noting mild multilevel spondylosis. Orbits: The bony orbits are intact. Orbital contents are normal as visualized. Sinuses and mastoids: Retention cysts within the maxillary antra measure up to 3.2 cm. The remaining paranasal sinuses are clear. The mastoid air cells are well pneumatized. IMPRESSION: 1. There is no hemorrhage, mass effect, or evidence of acute territorial ischemia by CT criteria. 2. Unremarkable CT angiogram of the brain. 3. Unremarkable CT angiogram of the neck. 4. Bilateral thyroid nodules measure up to 2 cm. Nonemergent thyroid ultrasound is recommended in follow-up. ACT 112: Negative or not required by law. Electronically signed by: Mac Killian M.D. 05/01/2023 4:52 PM Code Status & VTE Plan VTE Prophylaxis Plan VTE Prophylaxis will be ordered: Yes Supervising Physician Co-Signing Physician Notes I have seen and discussed the case with the collaborating MEJIA. I agree with the above H&P. I have reviewed and confirmed the patients medical history, the findings on physical examination, and the patients diagnosis and treatment plan with Xavier BA and agree with the information documented. Mr. Carrington is a 53 yo gentleman with prior pancreatic mass s/p resection/cholecystecomy/splenectomy c/b post operative pain who presented with dizziness which progressed to ataxia and right facial droop. Code stroke called, CTA/CT imaging performed without acute hemorrhage/mass effect and decision to administer TNK was made. Labs reviewed, notable for leukocytosis, anion gap of 14, and low HCO3 of 18. Otherwise no acute electrolyte abnormalities appreciated. Reviewed ECG without any acute findings. Physical exam at bedside was notable for patient appearing lethargic and weak, moving all extremities without apparent deficit, possible residual right facial droop as patient made concerted effort to open right eye and there was slight flattening of nasolabial fold. Cardiac exam was regular. No lower extremity swelling or edema. Plan to admit to ICU for post-TNK administration with neuro consult, start statin, DAPT per neuro, and am labs to include lipid panel and A1C. Plan discussed with patient and son at bedside. (2) Vomiting Nausea presence: with nausea Vomiting type: unspecified Qualified Code(s): R11.2 - Nausea with vomiting, unspecified
[2023-05-01] MEDS ORDERED: PHARMACIST DISCHARGE MED REC CONSULT PRN (18:14)
[2023-05-01] MEDS ORDERED: LABETALOL HCL IV 5 MG/ML 20ML IV PRN (18:14)
--- NOTE | 2023-05-01 18:40 | Critical Care Consultation ---
Date of Consultation May 01, 2023 Assessment & Plan (1) Stroke-like symptom: (2) Spinal stenosis: (3) Hypomagnesemia: (4) Thyroid nodule: Plan Reason Critically Ill: 53 YOM presents with stroke like symptoms around 1400 today- deemed TNK candidate for right sided facial droop, ataxia, right sided weakness- TNK 1722 administered- to the ICU for post TNK protocol. Await ECHO and MRI. 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 infarct, CAM ICU: NEGATIVE - Symptom onset noted after doing work with neck extended and streching of neck, however CT scans interpreted without stenosis or any dissections - He is post TNK- Continue with q1 neurologica exams- CT non con head for any change and at 24 hour roland - ASA when able - Statin following lipid panel evaluation - Telemetry monitoring - consider prolonged rythm analysis as outpatient - STOP BANG -1 - ECHO pending - MRI pending - PT/OT evaluation - Stroke educaiton Cardiac - NO history - Lipid panel as above likely initiate high dose statin in am Respiratory - No acute needs GI - Nausea with vomitting -Without abdominal pain, lipase normal, LFTs normal - diet as tolerated once passes bedside swallow eval - Zofran prn nausea RENAL/LYTES - Metabolic acidosis. hypomag - noted with HCO3 of 18, and gap 14 in EMD with normal glucose - lactate not checked but likley related to stress and volume status - provide 1 liter of ringers - replete mag - NO acute needs - UA normal ENDO - Thyorid nodules, hx of whipple procedure for pancreatic mass - Thyroid nodules incidentally found on CTA of neck- measures 2.0CM Bilaterally- follow up with ultrasound recommended HEME - No acute needs- ID - No concern for acute infection - mild leukocytosis with NLR of 5:1 follow symptoms, cbc and fever curve LINES/IV ACCESS - PIV Continue use of these lines DVT PROPHYLAXIS - SCDS, chemoprophylaxis contraindicated in setting of receiving thrombolytics DISPO- ICU 24 hours post TNK administration I have personally spent 40 minutes of critical care time in the direct management of this patient. This is a life/limb threatening event. This includes time spent evaluating patient, direct bedside care, chart review, placing orders, interpretation of diagnostic studies, discussion with consultants, patient, and family members, as well as other required patient management activities. This time is exclusive of all separately billable procedures, and separate from and in addition to any other critical care service time. Thank you for allowing us to participate in the care of this patient. Please refer to my attending physician's documentation for any further recommendations. History of Present Illness Reason for Consultation: Stroke like symptoms status post TNK Requesting Physician: MD Mirella Attending Physician: Leonela Vu MD History of Present Illness 53 YOM on no medications at home. Medical history of back injury with reported nerve damage, pancreatic mass s/p Whipple procedure ~ 10 years ago. Endorses that he does go to chiropractor services and receives neck and back manipulations. Endorses no smoking or drinking. Patient came to the EMD today via 911 for reported right sided weakness, balance problems, vomiting, and blurry vision. Patient reports that he was out pressure washing his house today, does report looking up for majority of the pressure washing- reports that he did this for a "few hours", he took break, went into the house and got a drink of water and sat down with his back resting on a exercise ball. He reports putting his neck back, feeling a sharp pain in the upper neck and when he went to sit up noticed blurry vision, nausea, sweating and onset of vomiting occurred, when he tried to get up he noticed that he was having trouble moving his right leg and stumbled into the wall and noticed his right arm felt weaker. He was able to get to his daughters room and notify 911. Symptom onset was reported as around 1400. In the EMD the patient was evaluated and stroke alerted with- CT of the head, CTA of the head and neck performed- these were dictated at 1643- and noted as normal without dissections or stenosis, or mass; however, with old left lacunar infarct and thyroid nodules were noted. He was given asa and [place] [facility] [place] He was deemed a TNK candidate, this was documented as administered at 1722. Patient arrives to the ICU with normal hemodynamic parameters, awake alert, and states that he feels much better than he did before noting previous difficulty with vision, slower processing and speech, and ataxia. He is currently with NIHSS of 0. Will monitor overnight for neurological changes, hemodynamic, obtain lipid panel, hgba1c for risk factor modification, obtain ECHO. CODE: FULL Allergies Allergy/AdvReac Type Severity Reaction Status Date / Time No Known Allergies Allergy Mild Verified 05/27/07 10:05 Home Medications Medication Instructions Recorded Confirmed Type No Known Home Medications 05/01/23 05/01/23 History Patient History Medical History History of tobacco use Pancreatic mass Spinal stenosis Surgical History H/O splenectomy History of partial pancreatectomy History of tonsillectomy S/P cholecystectomy Family History Other Cancer Hypertension Social History Smoking Status: Never smoker Smoking End Date: 2020; Hx Alcohol Use: No Hx Substance Use: Yes Last Used Substance: Hours (ago) Last Used Substance Other:: 0900 used tincature drops Preferred Language: Swazi Communication Ability: Effective Field Crop [employer] Required: No Beliefs That Will Affect Care: None Current Living Situation: Other Current Living Situation Comment: Lives with two children Other Information That Helps Us Care for You: No Feels Safe at Home: Yes Safety Concerns: Feels Safe At This Time Assistive Devices: None Review of Systems Review of Systems: REVIEW OF SYSTEMS: Constitutional: No fever, sweats or chills Eyes: (+) blurry vision- resolved, No diplopia, no worsening or blurred vision ENT: normal hearing, no trouble swallowing Respiratory: No cough, sputum, dyspnea at rest or on exertion Cardiovascular: No chest pain, tightness or palpitations Abdomen: (+) vomitting- resolved, No pain, nausea, vomiting, diarrhea or constipation Musculoskeletal: (+) chronic back/neck pain, No joint pain, calf pain, swelling Neurologic: (+) weakness, balance problems- resolved, no numbness/tingling, Psychiatric: No anxiety or depression Skin: No rash or itch Physical Exam Physical Exam: PHYSICAL EXAM: General: awake, alert, no apparent distress Head: Normocephalic, atraumatic ENT: no pharyngeal exudate, mucous membranes moist Neuro: AAO x 3, PEERLA, speech clear and appropriate, strength intact bilate rally 5/5, sensation intact and equal all extremities and dermatomes, no pronator drift, no visiual field cuts, no ataxia with finger to nose or heel to amin, gait not observed. NIHSS-0 Chest: equal rise and fall of the chest, no accessory muscle use, no heaves or thrills, Clear to auscultation, on room air, Cardiac: Regular rate and rhythm, telemetry reviewed- NSR, skin warm dry, cap refill <3 seconds, peripheral pulses +2 no JVD, no murmur, no edema GI: NABS x 4 quadrants, soft, nontender to palpation, no rebound, guarding or tenderness : Spontaneously voiding, no pain, no CVA tenderness, Psych: Normal mood and affect Skin: no rash or erythema Results & Data Results & Data Vital Signs (Past 12 Hours) Vital Signs Temp Pulse Pulse Resp BP BP BP 05/01/23 18:22 36.4 C L 63 20 120/72 05/01/23 18:05 05/01/23 18:00 69 20 139/64 05/01/23 17:51 66 19 109/78 05/01/23 17:36 65 20 105/67 05/01/23 17:21 78 20 124/84 05/01/23 16:45 75 20 151/79 H 05/01/23 16:41 74 05/01/23 16:07 35.9 C L 20 05/01/23 16:07 05/01/23 16:07 35.9 C L 74 20 134/73 Pulse Ox O2 Del Method 05/01/23 18:22 98 Room Air 05/01/23 18:05 Room Air 05/01/23 18:00 93 Room Air 05/01/23 17:51 92 Room Air 05/01/23 17:36 94 Room Air 05/01/23 17:21 97 Room Air 05/01/23 16:45 98 Room Air 05/01/23 16:41 05/01/23 16:07 99 Room Air 05/01/23 16:07 99 Room Air 05/01/23 16:07 99 Room Air Laboratory Results Abnormal lab results 05/01/23 05/01/23 05/01/23 Range/Units 14:20 14:20 16:23 WBC 13.68 H (4.8-10.8) K/ul RBC 4.20 L (4.70-6.10) M/uL POC Hgb 13.9 L (14.0-18.0) g/dl Hct 38.4 L (42.0-52.0) % POC Hct 41 L (42-52) % MCHC 36.5 H (32.0-36.0) g/dL Neut # (Auto) 10.11 H (1.40-6.50) K/uL [facility] # (Auto) 0.80 H (0.11-0.59) K/uL Carbon Dioxide 18 L (21-32) mmol/L POC Total CO2 16 L (24-31) mmol/L Anion Gap 14 H (3-11) Glucose 144 H (70-99(Fasting)) mg/dl POC Glucose (other) 147 H (70-99) mg/dl POC Ioniz Calcium Scotty 1.00 L (1.12-1.32) mmol/l Urine Ketones (Negative) 05/01/23 Range/Units Unknown WBC (4.8-10.8) K/ul RBC (4.70-6.10) M/uL POC Hgb (14.0-18.0) g/dl Hct (42.0-52.0) % POC Hct (42-52) % MCHC (32.0-36.0) g/dL Neut # (Auto) (1.40-6.50) K/uL [facility] # (Auto) (0.11-0.59) K/uL Carbon Dioxide (21-32) mmol/L POC Total CO2 (24-31) mmol/L Anion Gap (3-11) Glucose (70-99(Fasting)) mg/dl POC Glucose (other) (70-99) mg/dl POC Ioniz Calcium Scotty (1.12-1.32) mmol/l Urine Ketones 1+ H (Negative) Diagnostic Findings Chest X-Ray 05/01/23 16:15 XR chest 1V portable CLINICAL HISTORY: neuro deficit, acute stroke suspected TECHNIQUE: Single frontal radiograph of the chest was obtained. Comparison: None available at the time of this dictation. FINDINGS: No lines and tubes are seen. The cardiomediastinal silhouette is normal. The lungs are clear. No evidence of pleural effusion or pneumothorax. IMPRESSION: No acute chest disease. ACT 112: Negative or not required by law. Electronically signed by: Steven Garcia M.D. 05/01/2023 5:[address] 05/01/23 16:[address] OF THE BRAIN; CT ANGIOGRAM OF THE BRAIN; CT ANGIOGRAM OF THE NECK CLINICAL HISTORY: Neurological deficit. Stroke like symptoms. COMPARISON STUDY: No priors. TECHNIQUE: Unenhanced axial CT scan of the brain is performed. Subsequently, following the IV administration of 111 of Optiray 350, CT angiogram of the head and neck was performed from the aortic arch to the vertex. Images are reviewed in the axial, sagittal, and coronal planes. 3-D MIPS images are created and assessed. IV contrast was administered without complication. All measurements were calculated based on NASCET criteria. A dose lowering technique was utilized adhering to the principles of ALARA. CT DOSE: 1294.17 mGy.cm FINDINGS: Brain parenchyma: There is no hemorrhage, mass effect, or evidence of acute territorial ischemia by CT criteria. There is no evidence of enhancing mass lesion on the angiogram phase images. The ventricles, sulci, and cisterns are normal in configuration. Cisneros-white matter differentiation is preserved. There is a small chronic lacunar infarct in the left cerebellar hemisphere. No extra- axial fluid collection is seen. Thoracic aorta: Visualized portions of the thoracic aorta are normal in caliber. The aortic arch demonstrates standard 3-vessel anatomy. Right carotid arterial system: The right common carotid artery is widely patent, as are the right internal and external carotid arteries. Left carotid arterial system: The left common carotid artery is widely patent, as is the left internal and external carotid arteries. Vertebral arteries: The vertebral arteries are widely patent bilaterally noting right-sided dominance. The left vertebral artery is diminutive. Subclavian arteries: Widely patent bilaterally. Intracranial vasculature: There is moderate atherosclerotic calcification of the cavernous carotid arteries. The [place] is developmentally complete. The internal carotid arteries are patent at the skull base, as are the anterior and middle cerebral arteries bilaterally. The vertebrobasilar system and posterior cerebral arteries are widely patent. The right vertebral artery is dominant. The intracranial left vertebral artery is diminutive. There is no aneurysm, high-grade stenosis, or focal vessel cut off seen throughout the intracranial circulation. Jugular veins: Patent bilaterally. Dural sinuses: Patent. Lung apices: Partially visualized upper lobe lung parenchyma appears clear. Soft tissues: The visualized pharyngeal soft tissues are normal in appearance noting angiographic phase technique. The oropharyngeal airway appears widely patent. There are numerous bilateral thyroid nodules which measure up to 2.0 cm. Calcified sialoliths are noted in the right parotid gland. The salivary glands are otherwise normal in appearance. No cervical lymphadenopathy is seen. Skeletal structures: The calvarium appears intact. The cervical spine is maintained noting mild multilevel spondylosis. Orbits: The bony orbits are intact. Orbital contents are normal as visualized. Sinuses and mastoids: Retention cysts within the maxillary antra measure up to 3.2 cm. The remaining paranasal sinuses are clear. The mastoid air cells are well pneumatized. IMPRESSION: 1. There is no hemorrhage, mass effect, or evidence of acute territorial ischemia by CT criteria. 2. Unremarkable CT angiogram of the brain. 3. Unremarkable CT angiogram of the neck. 4. Bilateral thyroid nodules measure up to 2 cm. Nonemergent thyroid ultrasound is recommended in follow-up. ACT 112: Negative or not required by law. Electronically signed by: Mac Killian M.D. 05/01/2023 4:52 PM Head CTA 05/01/23 16:[address] OF THE BRAIN; CT ANGIOGRAM OF THE BRAIN; CT ANGIOGRAM OF THE NECK CLINICAL HISTORY: Neurological deficit. Stroke like symptoms. COMPARISON STUDY: No priors. TECHNIQUE: Unenhanced axial CT scan of the brain is performed. Subsequently, following the IV administration of 111 of Optiray 350, CT angiogram of the head and neck was performed from the aortic arch to the vertex. Images are reviewed in the axial, sagittal, and coronal planes. 3-D MIPS images are created and assessed. IV contrast was administered without complication. All measurements were calculated based on NASCET criteria. A dose lowering technique was utilized adhering to the principles of ALARA. CT DOSE: 1294.17 mGy.cm FINDINGS: Brain parenchyma: There is no hemorrhage, mass effect, or evidence of acute territorial ischemia by CT criteria. There is no evidence of enhancing mass lesion on the angiogram phase images. The ventricles, sulci, and cisterns are normal in configuration. Cisneros-white matter differentiation is preserved. There is a small chronic lacunar infarct in the left cerebellar hemisphere. No extra- axial fluid collection is seen. Thoracic aorta: Visualized portions of the thoracic aorta are normal in caliber. The aortic arch demonstrates standard 3-vessel anatomy. Right carotid arterial system: The right common carotid artery is widely patent, as are the right internal and external carotid arteries. Left carotid arterial system: The left common carotid artery is widely patent, as is the left internal and external carotid arteries. Vertebral arteries: The vertebral arteries are widely patent bilaterally noting right-sided dominance. The left vertebral artery is diminutive. Subclavian arteries: Widely patent bilaterally. Intracranial vasculature: There is moderate atherosclerotic calcification of the cavernous carotid arteries. The [place] is developmentally complete. The internal carotid arteries are patent at the skull base, as are the anterior and middle cerebral arteries bilaterally. The vertebrobasilar system and posterior cerebral arteries are widely patent. The right vertebral artery is dominant. The intracranial left vertebral artery is diminutive. There is no aneurysm, high-grade stenosis, or focal vessel cut off seen throughout the intracranial circulation. Jugular veins: Patent bilaterally. Dural sinuses: Patent. Lung apices: Partially visualized upper lobe lung parenchyma appears clear. Soft tissues: The visualized pharyngeal soft tissues are normal in appearance noting angiographic phase technique. The oropharyngeal airway appears widely patent. There are numerous bilateral thyroid nodules which measure up to 2.0 cm. Calcified sialoliths are noted in the right parotid gland. The salivary glands are otherwise normal in appearance. No cervical lymphadenopathy is seen. Skeletal structures: The calvarium appears intact. The cervical spine is maintained noting mild multilevel spondylosis. Orbits: The bony orbits are intact. Orbital contents are normal as visualized. Sinuses and mastoids: Retention cysts within the maxillary antra measure up to 3.2 cm. The remaining paranasal sinuses are clear. The mastoid air cells are well pneumatized. IMPRESSION: 1. There is no hemorrhage, mass effect, or evidence of acute territorial ischemia by CT criteria. 2. Unremarkable CT angiogram of the brain. 3. Unremarkable CT angiogram of the neck. 4. Bilateral thyroid nodules measure up to 2 cm. Nonemergent thyroid ultrasound is recommended in follow-up. ACT 112: Negative or not required by law. Electronically signed by: Mac Killian M.D. 05/01/2023 4:52 PM Neck CTA 05/01/23 16:[address] OF THE BRAIN; CT ANGIOGRAM OF THE BRAIN; CT ANGIOGRAM OF THE NECK CLINICAL HISTORY: Neurological deficit. Stroke like symptoms. COMPARISON STUDY: No priors. TECHNIQUE: Unenhanced axial CT scan of the brain is performed. Subsequently, following the IV administration of 111 of Optiray 350, CT angiogram of the head and neck was performed from the aortic arch to the vertex. Images are reviewed in the axial, sagittal, and coronal planes. 3-D MIPS images are created and assessed. IV contrast was administered without complication. All measurements were calculated based on NASCET criteria. A dose lowering technique was utilized adhering to the principles of ALARA. CT DOSE: 1294.17 mGy.cm FINDINGS: Brain parenchyma: There is no hemorrhage, mass effect, or evidence of acute territorial ischemia by CT criteria. There is no evidence of enhancing mass lesion on the angiogram phase images. The ventricles, sulci, and cisterns are normal in configuration. Cisneros-white matter differentiation is preserved. There is a small chronic lacunar infarct in the left cerebellar hemisphere. No extra- axial fluid collection is seen. Thoracic aorta: Visualized portions of the thoracic aorta are normal in caliber. The aortic arch demonstrates standard 3-vessel anatomy. Right carotid arterial system: The right common carotid artery is widely patent, as are the right internal and external carotid arteries. Left carotid arterial system: The left common carotid artery is widely patent, as is the left internal and external carotid arteries. Vertebral arteries: The vertebral arteries are widely patent bilaterally noting right-sided dominance. The left vertebral artery is diminutive. Subclavian arteries: Widely patent bilaterally. Intracranial vasculature: There is moderate atherosclerotic calcification of the cavernous carotid arteries. The [place] is developmentally complete. The internal carotid arteries are patent at the skull base, as are the anterior and middle cerebral arteries bilaterally. The vertebrobasilar system and posterior cerebral arteries are widely patent. The right vertebral artery is dominant. The intracranial left vertebral artery is diminutive. There is no aneurysm, high-grade stenosis, or focal vessel cut off seen throughout the intracranial circulation. Jugular veins: Patent bilaterally. Dural sinuses: Patent. Lung apices: Partially visualized upper lobe lung parenchyma appears clear. Soft tissues: The visualized pharyngeal soft tissues are normal in appearance noting angiographic phase technique. The oropharyngeal airway appears widely patent. There are numerous bilateral thyroid nodules which measure up to 2.0 cm. Calcified sialoliths are noted in the right parotid gland. The salivary glands are otherwise normal in appearance. No cervical lymphadenopathy is seen. Skeletal structures: The calvarium appears intact. The cervical spine is maintained noting mild multilevel spondylosis. Orbits: The bony orbits are intact. Orbital contents are normal as visualized. Sinuses and mastoids: Retention cysts within the maxillary antra measure up to 3.2 cm. The remaining paranasal sinuses are clear. The mastoid air cells are well pneumatized. IMPRESSION: 1. There is no hemorrhage, mass effect, or evidence of acute territorial ischemia by CT criteria. 2. Unremarkable CT angiogram of the brain. 3. Unremarkable CT angiogram of the neck. 4. Bilateral thyroid nodules measure up to 2 cm. Nonemergent thyroid ultrasound is recommended in follow-up. ACT 112: Negative or not required by law. Electronically signed by: Mac Killian M.D. 05/01/2023 4:52 PM Medications Administered Discontinued Medications Sodium Chloride (Nss) 500 mls @ 999 mls/hr IV .Q31M STA Stop: 05/01/23 16:36 Last Infusion: 05/01/23 16:44 Dose: 0 mls/hr Documented By: Admin: 05/01/23 16:10 Dose: 999 mls/hr Documented By: LILLIAN Tenecteplase 19 mg/ Syringe 3.8 mls @ 45.6 mls/min IV NOW ONE; Protocol Stop: 05/01/23 17:23 Last Admin: 05/01/23 17:20 Dose: 45.6 mls/min Documented By: PATEL Co-signed By: LEAH Ioversol (Ioversol 350 Mg 125ml Prefilled Syringe) 111 ml IV ONCE ONE Stop: 05/01/23 16:34 Last Admin: 05/01/23 16:33 Dose: 111 ml Documented By: CAROLE Lorazepam (Lorazepam 2 Mg/1 Ml Vial) 1 mg IV NOW STA Stop: 05/01/23 16:18 Last Admin: 05/01/23 16:36 Dose: 0.5 mg Documented By: LILLIAN Miscellaneous (Stat Iv) 1 each N/A NOW STA Stop: 05/01/23 17:13 Last Admin: 05/01/23 17:20 Dose: 1 each Documented By: PATEL Ondansetron HCl (Ondansetron Inj 2 Mg/Ml 2 Ml Vial) Confirm Administered Dose 4 mg .ROUTE .STK-MED ONE Stop: 05/01/23 15:59 Last Admin: 05/01/23 16:04 Dose: 4 mg Documented By: PATEL Ondansetron HCl (Ondansetron Inj 2 Mg/Ml 2 Ml Vial) 4 mg IV NOW STA Stop: 05/01/23 16:07 Last Admin: 05/01/23 16:10 Dose: 4 mg Documented By: LILLIAN Sodium Chloride (Sodium Chloride 0.9% 10ml Flush) 20 ml IV NOW STA Stop: 05/01/23 17:13 Last Admin: 05/01/23 17:20 Dose: 20 ml Documented By: PATEL Coding Level of Care Code 88294 CRITICAL CARE 1ST 30-74M Diagnoses Stroke-like symptom R29.90 Spinal stenosis M48.00 Hypomagnesemia E83.42 Thyroid nodule E04.1
[2023-05-01] MEDS ORDERED: LACTATED RINGER'S 1,000 ML IV SCH (18:45)
[2023-05-01] MEDS ORDERED: POTASSIUM CHLORIDE CRTAB 20 MEQ TABCR PO STA (19:14)
[2023-05-01] MEDS: MAGNESIUM SULFATE / D5W 1 GM/100 ML BAG IV SCH ×2 (19:14→22:30)
[2023-05-01] MEDS: ATORVASTATIN 40 MG TAB PO SCH (19:21)
[2023-05-01] MEDS ORDERED: ONDANSETRON INJ 2 MG/ML 2 ML VIAL IV PRN (19:21)
[2023-05-01] MEDS: ICU Protocol for HYPERglycemia SCH (20:05)
[2023-05-01] MEDS ORDERED: GADOBUTROL 65ML VIAL IV ONE (21:48)
--- NOTE | 2023-05-01 22:13 | Magnetic Resonance Report ---
Exam(s): MRI HEAD W/WO Contrast IV Amt: 7ml gadavist EXAM: MR Head Without and With Intravenous Contrast CLINICAL HISTORY: Reason for exam: stroke alert. TECHNIQUE: Magnetic resonance images of the head/brain without and with intravenous contrast in multiple planes. CONTRAST: Patient received 7ml gadavist of IV contrast COMPARISON: No relevant prior studies available. FINDINGS: Brain: There is a linear band of restricted diffusion seen in the right cerebellar hemisphere. No hemorrhage. Ventricles: Unremarkable. No ventriculomegaly. Bones/joints: Unremarkable. Sinuses: Unremarkable as visualized. No acute sinusitis. Mastoid air cells: Unremarkable as visualized. No mastoid effusion. Orbits: Unremarkable as visualized. IMPRESSION: Linear band of restricted diffusion in the right cerebellar hemisphere, consistent with acute infarct Electronically signed by: Rashi Hyatt MD 05/01/23 22:13 PM
[2023-05-02] MEDS: MAGNESIUM SULFATE / D5W 1 GM/100 ML BAG IV SCH (00:18)
[2023-05-02 05:02] LABS: Basophils # (auto) 0.03 K/uL (0-0.2); Basophils % (auto) 0.3 %; Eosinophils # (auto) 0.04 K/uL (0-0.50); Eosinophils % (auto) 0.5 %; Hematocrit (blood only) 38.4 % (42.0-52.0); Hemoglobin 13.5 g/dl (14.0-18.0); Immature Granulocytes # (auto) 0.01 K/uL (0.01-0.20); Immature Granulocytes % (auto) 0.1 %; Lymphocytes # (auto) 3.03 K/uL (1.2-3.4); Lymphocytes % (auto) 34.7 %; Mean Corpuscular Hemoglobin 32.4 pg (25.0-34.0); Mean Corpuscular Hgb Conc 35.2 g/dL (32.0-36.0); Mean Corpuscular Volume 92.1 fL (80.0-100.0); Mean Platelet Volume 9.1 fL (9.4-12.4); Monocytes # (auto) 0.68 K/uL (0.11-0.59); Monocytes % (auto) 7.8 %; Neutrophils # (auto) 4.93 K/uL (1.40-6.50); Neutrophils % (auto) 56.6 %; Platelet Count 287 K/uL (130-400); RDW Coefficient of Variation 12.9 % (11.5-14.5); RDW Standard Deviation 43.6 fL (36.4-46.3); Red Blood Count 4.17 M/uL (4.70-6.10); White Blood Count 8.72 K/ul (4.8-10.8)
[2023-05-02 05:58] LABS: BUN Creatinine Ratio 8.9 (10-20); Calcium 9.1 mg/dl (8.6-10.3); Est GFR (Non-African American) 101.8 ml/min; Potassium 4.2 mmol/L (3.5-5.1)
[2023-05-02] MEDS: ICU Protocol for HYPERglycemia SCH ×4 (07:58→20:33)
--- NOTE | 2023-05-02 08:04 | Critical Care Progress Note ---
Date of Service May 02, 2023 Assessment & Plan (1) Stroke-like symptom: (2) Spinal stenosis: (3) Hypomagnesemia: (4) Thyroid nodule: Plan Reason Critically Ill: 53 YOM presents with stroke like symptoms around 1400 today- deemed TNK candidate for right sided facial droop, ataxia, right sided weakness- TNK 1722 administered- to the ICU for post TNK protocol. Await ECHO and MRI. 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 infarct, CAM ICU: NEGATIVE - Symptom onset noted after doing work with neck extended and streching of neck, however CT scans interpreted without stenosis or any dissections - He is post TNK- Continue with q1 neurologica exams- CT non con head for any change and at 24 hour roland - ASA 24 hours after TNK, statin - Stroke education -MRI brain 05/01/2023: Acute infarct right cerebellar hemisphere Maintain blood pressure <180/105 for at least 24 hours post TNK Cardiac - NO history -Initiate statin Respiratory - -- Ex-smoker Approximately [id number] smoking history Quit at the age of 51 Encouraged to continue abstinence from smoking Recommend PFT as an outpatient GI - Nausea with vomitting -Without abdominal pain, lipase normal, LFTs normal - diet as tolerated once passes bedside swallow eval - Zofran prn nausea RENAL/LYTES -s/p metabolic acidosis - NO acute needs - UA normal ENDO - Thyorid nodules, hx of whipple procedure for pancreatic mass - Thyroid nodules incidentally found on CTA of neck- measures 2.0CM Bilaterally- follow up with ultrasound recommended HEME - No acute needs ID - No concern for acute infection - mild leukocytosis with NLR of 5:1 follow symptoms, cbc and fever curve --Prophylaxis VTE: IPC GI:None Lines: Peripheral Diet: Cardiac Plan: In/out: -660, urine output 2 L Continue with neurochecks as per protocol Patient will have another CT head done around 5:15 PM If that is negative can resume aspirin and statin. Disposition will be decided based on repeat CT head Please note the above document was generated using voice recognition software. It may contain grammatical, syntax or spelling errors.Any formal questions or concerns about the content, text or information contained within the body of this dictation should be directly addressed to the provider for clarification. Admission and Anticipated Discharge Date Admission Date: May 01, 2023 Subjective Patient seen and examined at bedside. No acute distress, no adverse events overnight Denies any blurry vision, no dizziness, no weakness Able to have breakfast today. Does complain of mild headache on the right side which has been going on for months. No change in intensity or frequency No chest pain, no shortness of breath Review of Systems Review of Systems: All systems reviewed & are unremarkable except as noted in Subjective Physical Exam Physical Exam: Constitutional: No acute distress HEENT: EOMI, PERRLA Respiratory system: Good air entry bilaterally, no wheeze, no rhonchi, no c rackles CVS: S1-S2 positive, no murmurs or gallops Abdomen: Soft, nontender, nondistended, positive bowel sounds x4 Extremities: +2 pulses bilaterally radialis/ dorsalis pedis, no cyanosis, no edema Neuro: Awake alert oriented x3, cranial nerves II to XII grossly intact, muscle strength 5 out of 5 bilateral upper and lower extremity Psych: Normal mood and affect G/U: No [place] Skin: no rashes, warm and dry Lymphatic: no cervical or axillary lymphadenopathy Results & Data Results & Data Vital Signs (Past 12 Hours) Vital Signs Temp Pulse Pulse Resp BP BP Pulse Ox 05/02/23 06:30 64 22 98 05/02/23 06:30 126/68 05/02/23 06:15 58 L 31 H 96 05/02/23 06:15 103/76 05/02/23 06:00 57 L 26 H 96 05/02/23 06:00 120/76 05/02/23 05:45 55 L 21 94 05/02/23 05:45 130/69 05/02/23 06:19 36.6 C 67 14 103/76 97 05/02/23 05:30 61 23 95 05/02/23 05:30 129/73 05/02/23 05:15 61 25 H 96 05/02/23 05:15 119/79 05/02/23 05:00 60 23 96 05/02/23 05:00 119/73 05/02/23 04:45 66 21 96 05/02/23 04:45 120/71 05/02/23 04:30 81 20 05/02/23 04:30 102/80 05/02/23 04:15 58 L 19 94 05/02/23 04:15 105/52 L 05/02/23 04:00 59 L 20 95 05/02/23 04:00 102/53 L 05/02/23 03:45 59 L 21 97 05/02/23 03:45 94/50 L 05/02/23 03:30 55 L 18 96 05/02/23 03:30 114/51 L 05/02/23 03:15 59 L 20 94 05/02/23 03:15 100/52 L 05/02/23 03:00 55 L 20 94 05/02/23 03:00 97/47 L 05/02/23 02:45 58 L 23 94 05/02/23 02:45 97/55 L 05/02/23 02:30 59 L 23 97 05/02/23 02:30 116/70 05/02/23 02:15 59 L 20 96 05/02/23 02:15 99/46 L 05/02/23 05:21 36.6 C 58 L 14 129/73 95 05/02/23 04:21 36.6 C 55 L 14 105/52 L 97 05/02/23 04:00 36.6 C 55 L 14 105/85 97 05/02/23 03:21 36.8 C 62 96 H 114/51 L 14 L 05/02/23 02:00 56 L 21 95 05/02/23 02:00 95/45 L 05/02/23 01:45 58 L 26 H 97 05/02/23 01:45 117/73 05/02/23 01:30 56 L 22 94 05/02/23 01:30 132/63 05/02/23 01:15 56 L 24 96 05/02/23 01:15 124/69 05/02/23 01:00 59 L 26 H 96 05/02/23 01:00 114/66 05/02/23 00:45 64 24 95 05/02/23 00:45 100/50 L 05/02/23 00:30 58 L 21 95 05/02/23 00:30 111/71 05/02/23 02:21 36.7 C 60 15 116/70 96 05/02/23 01:21 36.7 C 55 L 15 117/73 97 05/02/23 00:51 36.7 C 58 L 14 111/71 95 05/02/23 00:15 58 L 25 H 96 05/02/23 00:15 109/67 05/02/23 00:00 60 18 95 05/02/23 00:00 102/53 L 05/01/23 23:45 63 21 94 05/01/23 23:45 95/53 L 05/01/23 23:30 57 L 18 94 05/01/23 23:30 102/53 L 05/01/23 23:15 59 L 21 94 05/01/23 23:15 100/52 L 05/01/23 23:01 61 29 H 96 05/01/23 23:01 94/55 L 05/01/23 23:00 72 21 91 05/02/23 00:00 36.6 C 55 L 15 109/67 96 05/02/23 00:00 55 L 05/02/23 00:21 36.6 C 53 L 15 109/67 96 05/01/23 23:51 36.7 C 64 64 H 102/53 L 95 05/01/23 23:21 36.6 C 64 15 102/53 L 94 05/01/23 22:45 58 L 17 05/01/23 22:45 116/69 05/01/23 22:30 61 23 96 05/01/23 22:30 120/64 05/01/23 22:15 57 L 23 96 05/01/23 22:15 127/72 05/01/23 22:00 59 L 25 H 96 05/01/23 21:58 136/73 05/01/23 21:58 62 21 94 05/01/23 21:49 61 15 05/01/23 20:45 62 20 93 05/01/23 20:45 126/74 05/01/23 20:30 63 17 05/01/23 20:30 123/65 05/01/23 20:15 71 20 95 05/01/23 20:15 157/72 H 05/01/23 22:51 36.7 C 57 L 15 127/75 96 05/01/23 22:21 36.7 C 59 L 16 120/64 96 05/01/23 21:51 36.7 C 60 15 136/73 97 05/01/23 21:21 36.7 C 70 12 120/65 93 05/01/23 20:00 63 19 96 05/01/23 20:00 100/79 05/01/23 20:51 36.7 C 61 18 127/81 94 05/01/23 20:21 36.6 C 59 L 18 129/71 94 O2 Del Method 05/02/23 06:30 05/02/23 06:30 05/02/23 06:15 05/02/23 06:15 05/02/23 06:00 05/02/23 06:00 05/02/23 05:45 05/02/23 05:45 05/02/23 06:19 Room Air 05/02/23 05:30 05/02/23 05:30 05/02/23 05:15 05/02/23 05:15 05/02/23 05:00 05/02/23 05:00 05/02/23 04:45 05/02/23 04:45 05/02/23 04:30 05/02/23 04:30 05/02/23 04:15 05/02/23 04:15 05/02/23 04:00 05/02/23 04:00 05/02/23 03:45 05/02/23 03:45 05/02/23 03:30 05/02/23 03:30 05/02/23 03:15 05/02/23 03:15 05/02/23 03:00 05/02/23 03:00 05/02/23 02:45 05/02/23 02:45 05/02/23 02:30 05/02/23 02:30 05/02/23 02:15 05/02/23 02:15 05/02/23 05:21 Room Air 05/02/23 04:21 Room Air 05/02/23 04:00 Room Air 05/02/23 03:21 Room Air 05/02/23 02:00 05/02/23 02:00 05/02/23 01:45 05/02/23 01:45 05/02/23 01:30 05/02/23 01:30 05/02/23 01:15 05/02/23 01:15 05/02/23 01:00 05/02/23 01:00 05/02/23 00:45 05/02/23 00:45 05/02/23 00:30 05/02/23 00:30 05/02/23 02:21 Room Air 05/02/23 01:21 Room Air 05/02/23 00:51 Room Air 05/02/23 00:15 05/02/23 00:15 05/02/23 00:00 05/02/23 00:00 05/01/23 23:45 05/01/23 23:45 05/01/23 23:30 05/01/23 23:30 05/01/23 23:15 05/01/23 23:15 05/01/23 23:01 05/01/23 23:01 05/01/23 23:00 05/02/23 00:00 Room Air 05/02/23 00:00 05/02/23 00:21 Room Air 05/01/23 23:51 Room Air 05/01/23 23:21 Room Air 05/01/23 22:45 05/01/23 22:45 05/01/23 22:30 05/01/23 22:30 05/01/23 22:15 05/01/23 22:15 05/01/23 22:00 05/01/23 21:58 05/01/23 21:58 05/01/23 21:49 05/01/23 20:45 05/01/23 20:45 05/01/23 20:30 05/01/23 20:30 05/01/23 20:15 05/01/23 20:15 05/01/23 22:51 Room Air 05/01/23 22:21 Room Air 05/01/23 21:51 Room Air 05/01/23 21:21 Room Air 05/01/23 20:00 05/01/23 20:00 05/01/23 20:51 Room Air 05/01/23 20:21 Room Air Laboratory Results 05/02/23 04:42 05/02/23 04:42 Coding Level of Care Code 06291 SUB INP/OBS CARE 3/50MIN Diagnoses Stroke-like symptom R29.90 Spinal stenosis M48.00 Hypomagnesemia E83.42 Thyroid nodule E04.1
[2023-05-02 09:08] LABS: Estimated Average Glucose 128 mg/dl; Hemoglobin A1C 6.1 % (4.5-5.6)
--- NOTE | 2023-05-02 10:16 | Neurology Consultation ---
Date of Consultation May 02, 2023 Assessment & Plan (1) Cerebellar stroke, acute: Patient presents with dizziness and nausea secondary to a cerebellar infarct that appears embolic. Would have otherwise expected a vertebral artery dissection given the neck manipulation but none was present. Echo reveals a la rge PFO and patient likely valsalva'd while on the exercise ball using his core muscles. With the recent car trip would be more concerned about a DVT and recommend LE dopplers. Otherwise ROPE score is a 7 as he has no other risk factors - 72% stroke risk attributed to the PFO. Would suggest potential closure. Recommend cardiology evaluation as an outpatient. In the meantime after 24 hours post-TNK can be started on aspirin. Would also start statin - lipitor 40mg daily for LDL goal <70. -- LE dopplers -- Cardiology evaluation as an outpatient -- Aspirin 81mg daily after 24 hours post-TNK -- Lipitor 40mg daily -- Suspect could be discharged this afternoon -- Neurology follow-up in 6-8 weeks Telehealth Consultation Telehealth Information Telehealth Information: I performed this visit using a real-time telehealth connection between my location and the patients location ([facility]). After connecting through interactive tele-video, patient was identified by name and date of and/or wristband check.Patient (or authorized healthcare promotional representative) was informed that this was a telemedicine visit and it was being conducted confidentially over secure lines. My office door was closed and no one else was present in the room with me.Patient (or authorized healthcare promotional representative) provided consent to proceed with the visit, expressed an understanding of privacy and security of the telemedicine visit, and gave permission to have a hospital promotional representative in the room in order to assist with the visit and to conduct portions of the visit, as needed. I informed the patient (or authorized healthcare promotional representative) that I reviewed their record and presented the opportunity for them to ask any questions regarding the visit today. The patient agreed to participate. History of Present Illness Reason for Consultation: Stroke Requesting Physician: Dr. Llanes Attending Physician: Chau Llanes MD History of Present Illness Mil Carrington is a 53 yo M presenting with acute onset vertigo, nausea and vomiting after extending his neck over an exercise ball. He received TNK for his symptoms and today reports that he feels back to baseline except for a R sided headache which is not unusual for him. He does admit to chriopractic neck manipulation and did take a 90 min car trip this past weekend. No history of prior stroke or blood clots. Had a pancreatic mass removed in the past which was non-cancerous. Otherwise healthy and not on any medications. Allergies Allergy/AdvReac Type Severity Reaction Status Date / Time No Known Allergies Allergy Mild Verified 05/27/07 10:05 Home Medications Medication Instructions Recorded Confirmed Type No Known Home Medications 05/01/23 05/01/23 History Patient History Medical History History of tobacco use Pancreatic mass Spinal stenosis Surgical History H/O splenectomy History of partial pancreatectomy History of tonsillectomy S/P cholecystectomy Family History Other Cancer Hypertension Social History Smoking Status: Never smoker Smoking End Date: 2020; Hx Alcohol Use: No Hx Substance Use: Yes Last Used Substance: Hours (ago) Last Used Substance Other:: 0900 used tincature drops Preferred Language: [place] Communication Ability: Effective Toxics Program Officer Required: No Beliefs That Will Affect Care: None Current Living Situation: Other Current Living Situation Comment: Lives with two children Other Information That Helps Us Care for You: No Feels Safe at Home: Yes Safety Concerns: Feels Safe At This Time Assistive Devices: None Review of Systems +dizziness, resolved Physical Exam Neurological Examination: Mental Status: Awake and alert. Oriented to person, place, and time. Fluent. Comprehension intact. Affect appropriate. Cranial Nerves: II:pupils 3/3 to 2/2, dailey grossly intact. III/IV/: Versions intact without nystagmus, no gaze preference. V: Facial sensation symmetric to light touch VII: Facial expression symmetric VIII: Hearing intact to voice Motor: Strength was symmetric and antigravity throughout. Pronator drift was absent. There were no abnormal movements. Coordination: Finger to nose inbtact, no dysmetria Reflexes: Unable to assess over telemedicine Results & Data Vital Signs (Past 12 Hours) Vital Signs Temp Pulse Pulse Resp BP BP Pulse Ox 05/02/23 09:51 62 16 100/70 96 05/02/23 08:51 36.6 C 74 16 111/74 98 05/02/23 07:21 36.6 C 62 16 118/77 98 05/02/23 07:51 36.6 C 62 16 119/77 98 05/02/23 06:30 64 22 98 05/02/23 06:30 126/68 05/02/23 06:15 58 L 31 H 96 05/02/23 06:15 103/76 05/02/23 06:00 57 L 26 H 96 05/02/23 06:00 120/76 05/02/23 05:45 55 L 21 94 05/02/23 05:45 130/69 05/02/23 06:19 36.6 C 67 14 103/76 97 05/02/23 05:30 61 23 95 05/02/23 05:30 129/73 05/02/23 05:15 61 25 H 96 05/02/23 05:15 119/79 05/02/23 05:00 60 23 96 05/02/23 05:00 119/73 05/02/23 04:45 66 21 96 05/02/23 04:45 120/71 05/02/23 04:30 81 20 05/02/23 04:30 102/80 05/02/23 04:15 58 L 19 94 05/02/23 04:15 105/52 L 05/02/23 04:00 59 L 20 95 05/02/23 04:00 102/53 L 05/02/23 03:45 59 L 21 97 05/02/23 03:45 94/50 L 05/02/23 03:30 55 L 18 96 05/02/23 03:30 114/51 L 05/02/23 03:15 59 L 20 94 05/02/23 03:15 100/52 L 05/02/23 03:00 55 L 20 94 05/02/23 03:00 97/47 L 05/02/23 02:45 58 L 23 94 05/02/23 02:45 97/55 L 05/02/23 02:30 59 L 23 97 05/02/23 02:30 116/70 05/02/23 02:15 59 L 20 96 05/02/23 02:15 99/46 L 05/02/23 05:21 36.6 C 58 L 14 129/73 95 05/02/23 04:21 36.6 C 55 L 14 105/52 L 97 05/02/23 04:00 36.6 C 55 L 14 105/85 97 05/02/23 03:21 36.8 C 62 96 H 114/51 L 14 L 05/02/23 02:00 56 L 21 95 05/02/23 02:00 95/45 L 05/02/23 01:45 58 L 26 H 97 05/02/23 01:45 117/73 05/02/23 01:30 56 L 22 94 05/02/23 01:30 132/63 05/02/23 01:15 56 L 24 96 05/02/23 01:15 124/69 05/02/23 01:00 59 L 26 H 96 05/02/23 01:00 114/66 05/02/23 00:45 64 24 95 05/02/23 00:45 100/50 L 05/02/23 00:30 58 L 21 95 05/02/23 00:30 111/71 05/02/23 02:21 36.7 C 60 15 116/70 96 05/02/23 01:21 36.7 C 55 L 15 117/73 97 05/02/23 00:51 36.7 C 58 L 14 111/71 95 05/02/23 00:15 58 L 25 H 96 05/02/23 00:15 109/67 05/02/23 00:00 60 18 95 05/02/23 00:00 102/53 L 05/01/23 23:45 63 21 94 05/01/23 23:45 95/53 L 05/01/23 23:30 57 L 18 94 05/01/23 23:30 102/53 L 05/01/23 23:15 59 L 21 94 05/01/23 23:15 100/52 L 05/01/23 23:01 61 29 H 96 05/01/23 23:01 94/55 L 05/01/23 23:00 72 21 91 05/02/23 00:00 36.6 C 55 L 15 109/67 96 05/02/23 00:00 55 L 05/02/23 00:21 36.6 C 53 L 15 109/67 96 05/01/23 23:51 36.7 C 64 64 H 102/53 L 95 05/01/23 23:21 36.6 C 64 15 102/53 L 94 05/01/23 22:45 58 L 17 05/01/23 22:45 116/69 05/01/23 22:30 61 23 96 05/01/23 22:30 120/64 05/01/23 22:15 57 L 23 96 05/01/23 22:15 127/72 05/01/23 22:51 36.7 C 57 L 15 127/75 96 05/01/23 22:21 36.7 C 59 L 16 120/64 96 O2 Del Method 05/02/23 09:51 Room Air 05/02/23 08:51 Room Air 05/02/23 07:21 Room Air 05/02/23 07:51 Room Air 05/02/23 06:30 05/02/23 06:30 05/02/23 06:15 05/02/23 06:15 05/02/23 06:00 05/02/23 06:00 05/02/23 05:45 05/02/23 05:45 05/02/23 06:19 Room Air 05/02/23 05:30 05/02/23 05:30 05/02/23 05:15 05/02/23 05:15 05/02/23 05:00 05/02/23 05:00 05/02/23 04:45 05/02/23 04:45 05/02/23 04:30 05/02/23 04:30 05/02/23 04:15 05/02/23 04:15 05/02/23 04:00 05/02/23 04:00 05/02/23 03:45 05/02/23 03:45 05/02/23 03:30 05/02/23 03:30 05/02/23 03:15 05/02/23 03:15 05/02/23 03:00 05/02/23 03:00 05/02/23 02:45 05/02/23 02:45 05/02/23 02:30 05/02/23 02:30 05/02/23 02:15 05/02/23 02:15 05/02/23 05:21 Room Air 05/02/23 04:21 Room Air 05/02/23 04:00 Room Air 05/02/23 03:21 Room Air 05/02/23 02:00 05/02/23 02:00 05/02/23 01:45 05/02/23 01:45 05/02/23 01:30 05/02/23 01:30 05/02/23 01:15 05/02/23 01:15 05/02/23 01:00 05/02/23 01:00 05/02/23 00:45 05/02/23 00:45 05/02/23 00:30 05/02/23 00:30 05/02/23 02:21 Room Air 05/02/23 01:21 Room Air 05/02/23 00:51 Room Air 05/02/23 00:15 05/02/23 00:15 05/02/23 00:00 05/02/23 00:00 05/01/23 23:45 05/01/23 23:45 05/01/23 23:30 05/01/23 23:30 05/01/23 23:15 05/01/23 23:15 05/01/23 23:01 05/01/23 23:01 05/01/23 23:00 05/02/23 00:00 Room Air 05/02/23 00:00 05/02/23 00:21 Room Air 05/01/23 23:51 Room Air 05/01/23 23:21 Room Air 05/01/23 22:45 05/01/23 22:45 05/01/23 22:30 05/01/23 22:30 05/01/23 22:15 05/01/23 22:15 05/01/23 22:51 Room Air 05/01/23 22:21 Room Air Laboratory Results Abnormal lab results 05/01/23 05/01/23 05/01/23 Range/Units 14:20 14:20 16:23 WBC 13.68 H (4.8-10.8) K/ul RBC 4.20 L (4.70-6.10) M/uL Hgb (14.0-18.0) g/dl POC Hgb 13.9 L (14.0-18.0) g/dl Hct 38.4 L (42.0-52.0) % POC Hct 41 L (42-52) % MCHC 36.5 H (32.0-36.0) g/dL MPV (9.4-12.4) fL Neut # (Auto) 10.11 H (1.40-6.50) K/uL [place] # (Auto) 0.80 H (0.11-0.59) K/uL Carbon Dioxide 18 L (21-32) mmol/L POC Total CO2 16 L (24-31) mmol/L Anion Gap 14 H (3-11) BUN/Creatinine Ratio (10-20) Glucose 144 H (70-99(Fasting)) mg/dl POC Glucose (70-99) mg/dl POC Glucose (other) 147 H (70-99) mg/dl Hemoglobin A1c (4.5-5.6) % POC Ioniz Calcium Scotty 1.00 L (1.12-1.32) mmol/l Urine Ketones (Negative) 05/01/23 05/01/23 05/02/23 Range/Units 20:00 Unknown 04:42 WBC (4.8-10.8) K/ul RBC 4.17 L (4.70-6.10) M/uL Hgb 13.5 L (14.0-18.0) g/dl POC Hgb (14.0-18.0) g/dl Hct 38.4 L (42.0-52.0) % POC Hct (42-52) % MCHC (32.0-36.0) g/dL MPV 9.1 L (9.4-12.4) fL Neut # (Auto) (1.40-6.50) K/uL [place] # (Auto) 0.68 H (0.11-0.59) K/uL Carbon Dioxide (21-32) mmol/L POC Total CO2 (24-31) mmol/L Anion Gap (3-11) BUN/Creatinine Ratio (10-20) Glucose (70-99(Fasting)) mg/dl POC Glucose 133 H (70-99) mg/dl POC Glucose (other) (70-99) mg/dl Hemoglobin A1c (4.5-5.6) % POC Ioniz Calcium Scotty (1.12-1.32) mmol/l Urine Ketones 1+ H (Negative) 05/02/23 05/02/23 Range/Units 04:42 04:42 WBC (4.8-10.8) K/ul RBC (4.70-6.10) M/uL Hgb (14.0-18.0) g/dl POC Hgb (14.0-18.0) g/dl Hct (42.0-52.0) % POC Hct (42-52) % MCHC (32.0-36.0) g/dL MPV (9.4-12.4) fL Neut # (Auto) (1.40-6.50) K/uL [place] # (Auto) (0.11-0.59) K/uL Carbon Dioxide (21-32) mmol/L POC Total CO2 (24-31) mmol/L Anion Gap (3-11) BUN/Creatinine Ratio 8.9 L (10-20) Glucose 108 H (70-99(Fasting)) mg/dl POC Glucose (70-99) mg/dl POC Glucose (other) (70-99) mg/dl Hemoglobin A1c 6.1 H (4.5-5.6) % POC Ioniz Calcium Scotty (1.12-1.32) mmol/l Urine Ketones (Negative) Diagnostic Findings MRI brain - small R cerebellar infarct CTA head and neck - R vert dominant, no dissection
--- NOTE | 2023-05-02 11:06 | Pharmacy Report ---
- Date of Service May 02, 2023 - Pharmacy CVA/TIA Medication Review Medications to Prevent Stroke handout has been added to the patients discharge packet. Antiplatelet(s) * Aspirin 81mg daily- to be initiated 24h after thrombolytic Cholesterol * High intensity statin: atorvastatin 40 mg daily DVT Prophylaxis * SCD knee Therapeutic Anticoagulation * No history of Afib/Aflutter noted Type 2 Diabetes * Patient does not have T2DM
--- NOTE | 2023-05-02 15:27 | Ultrasound Report ---
BILATERAL LOWER EXTREMITY VENOUS DOPPLER HISTORY: Lower extremity swelling. r/o dvt COMPARISON STUDY: None. FINDINGS: There is normal compressibility, flow, and augmentation within the bilateral lower extremit y deep venous systems. IMPRESSION: No DVT within the right or left lower extremity. ACT 112: Negative or not required by law. Electronically signed by: Timmy Damian M.D. 05/02/2023 3:25 PM
--- NOTE | 2023-05-02 17:38 | Electrocardiogram Report ---
Test Reason : Blood Pressure : / mmHG Vent. Rate : 064 BPM Atrial Rate : 064 BPM P-R Int : 120 ms QRS Dur : 084 ms QT Int : 458 ms P-R-T Axes : 035 021 029 degrees QTc Int : 472 ms Poor data quality, interpretation may be adversely affected Normal sinus rhythm Normal ECG No previous ECGs available Confirmed by Amadeo Cuellar ([id number]) on 05/02/2023 5:38:14 PM Referred By: REFERRED SELF Confirmed By:Amadeo Cuellar
--- NOTE | 2023-05-02 17:44 | Hospitalist Progress Note ---
Date of Service May 02, 2023 Assessment & Plan (1) Stroke-like symptom: (2) Vomiting: (3) Vertigo: Plan: This is a 53yo M with a PMH of past tobacco use, spinal stenosis, h/o pancreatic mass s/p distal pancreatectomy and splenectomy who presents with sudden onset dizziness, nausea and vomiting starting around 1400 today. Strokelike symptoms s/p TNK Developed dizziness, nausea and vomiting around 1400 today, came to ED and received TNK around 1715 Lab work and imaging reviewed: CT head without acute intracranial abnormality, CTA head/neck without hemorrhage, mass effect, or evidence of acute territorial ischemia by CT criteria Admitting to ICU for further observation and management - Dr. Palomares aware Brain MRI w/wo, bubble study, a1c and lipids pending PRN labetalol to keep BP at goal <185/110 No aspirin for 24 hrs, adding statin PT, OT, speech evaluations per protocol Routine neuro consult (4) History of tobacco use: Plan: Quit 2.5 years ago (5) Spinal stenosis: Plan: PRN Tylenol Code status: FULL PCP: [facility] Dispo: Admitted to ICU Patient seen in collaboration with Dr. Vu. Please see addendum. Admission and Anticipated Discharge Date Admission Date: May 01, 2023 Results & Data Results & Data Vital Signs (Past 12 Hours) Vital Signs Temp Pulse Pulse Resp BP BP Pulse Ox 05/02/23 16:51 70 16 120/79 96 05/02/23 15:51 60 16 101/57 L 95 05/02/23 14:51 59 L 16 120/75 97 05/02/23 13:51 67 16 101/53 L 95 05/02/23 12:00 36.8 C 05/02/23 12:51 71 18 103/51 L 96 05/02/23 11:51 63 16 135/67 96 05/02/23 10:51 59 L 16 133/72 96 05/02/23 09:51 62 16 100/70 96 05/02/23 08:51 36.6 C 74 16 111/74 98 05/02/23 07:21 36.6 C 62 16 118/77 98 05/02/23 07:51 36.6 C 62 16 119/77 98 05/02/23 06:30 64 22 98 05/02/23 06:30 126/68 05/02/23 06:15 58 L 31 H 96 05/02/23 06:15 103/76 05/02/23 06:00 57 L 26 H 96 05/02/23 06:00 120/76 05/02/23 05:45 55 L 21 94 05/02/23 05:45 130/69 05/02/23 06:19 36.6 C 67 14 103/76 97 O2 Del Method 05/02/23 16:51 Room Air 05/02/23 15:51 Room Air 05/02/23 14:51 Room Air 05/02/23 13:51 Room Air 05/02/23 12:00 05/02/23 12:51 Room Air 05/02/23 11:51 Room Air 05/02/23 10:51 Room Air 05/02/23 09:51 Room Air 05/02/23 08:51 Room Air 05/02/23 07:21 Room Air 05/02/23 07:51 Room Air 05/02/23 06:30 05/02/23 06:30 05/02/23 06:15 05/02/23 06:15 05/02/23 06:00 05/02/23 06:00 05/02/23 05:45 05/02/23 05:45 05/02/23 06:19 Room Air (2) Vomiting Nausea presence: with nausea Vomiting type: unspecified Qualified Code(s): R11.2 - Nausea with vomiting, unspecified
--- NOTE | 2023-05-02 18:09 | CT Scan Report ---
HEAD CT NONCONTRAST CT DOSE: 625.80 mGy.cm HISTORY: 24 hour post TNK- eval for bleed conversion TECHNIQUE: Multiaxial CT images of the head were performed without the use of intravenous contrast. A utomated exposure control was utilized for this study. A dose lowering technique was utilized adheri ng to the principles of ALARA. Comparison: Head CT 05/01/2023. Findings: Maxillary sinus retention cysts are again noted. The mastoid air cells are clear. The 2.5 c m hypodense focus at the right cerebellar hemisphere consistent with an evolving infarct seen on the prior brain MRI. 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 No intracranial hemorrhage identified. No mass effect or midline shift. No additional infarcts within t he brain. 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 No evidence for hemorrhagic transformation . ACT 112: Negative or not required by law. Electronically signed by: Timmy Damian M.D. 05/02/2023 6:06 PM
[2023-05-02] MEDS ORDERED: ASPIRIN 81 MG ECTAB PO SCH (19:00)
[2023-05-02] MEDS: ATORVASTATIN 40 MG TAB PO SCH (20:34)
[2023-05-02] MEDS: ACETAMINOPHEN 325 MG TAB PO PRN (23:07)
[2023-05-03 06:54] LABS: Basophils # (auto) 0.04 K/uL (0.00-0.20); Basophils % (auto) 0.5 %; Eosinophils # (auto) 0.04 K/uL (0.00-0.50); Eosinophils % (auto) 0.5 %; Hemoglobin 14.5 g/dl (14.0-18.0); Immature Granulocytes # (auto) 0.02 K/uL (0.01-0.20); Immature Granulocytes % (auto) 0.2 %; Lymphocytes # (auto) 2.34 K/uL (1.20-3.40); Lymphocytes % (auto) 28.9 %; Mean Corpuscular Hemoglobin 32.2 pg (25.0-34.0); Mean Corpuscular Hgb Conc 34.5 g/dL (32.0-36.0); Mean Corpuscular Volume 93.1 fL (80.0-100.0); Mean Platelet Volume 9.1 fL (9.4-12.4); Monocytes # (auto) 0.63 K/uL (0.11-0.59); Monocytes % (auto) 7.8 %; Neutrophils # (auto) 5.02 K/uL (1.40-6.50); Neutrophils % (auto) 62.1 %; Platelet Count 298 K/uL (130-400); RDW Coefficient of Variation 12.8 % (11.5-14.5); RDW Standard Deviation 44.2 fL (36.4-46.3); Red Blood Count 4.51 M/uL (4.70-6.10); White Blood Count 8.09 K/ul (4.8-10.8)
[2023-05-03 07:12] LABS: BUN Creatinine Ratio 12.2 (10-20); Calcium 9.3 mg/dl (8.6-10.3); Creatinine Clr Calc Pharmacy 94.4 ml/min; Est GFR (African American) 111.8 ml/min; Est GFR (Non-African American) 96.5 ml/min; Potassium 4.4 mmol/L (3.5-5.1)
[2023-05-03] MEDS: ACETAMINOPHEN 325 MG TAB PO PRN (07:51)
--- NOTE | 2023-05-03 10:55 | Cardiology Consultation ---
Date of Consultation May 03, 2023 Assessment & Plan (1) Cerebellar stroke, acute: (2) PFO (patent foramen ovale): Plan Natural history and pathophysiology of patent foramen ovale discussed. Rope score equals 7 indicating a 72% likelihood the CVA is PFO-attributable. Recommend hypercoagulable work-up and 14-day ZIO monitor as an outpatient. If the studies are unrevealing patient will require transesophageal echocardiogram for further evaluation of PFO. We will arrange for outpatient referral to structural cardiology to consider PFO closure. Continue aspirin and statin therapy. All questions answered to patient's satisfaction. No further inpatient cardiac testing or intervention recommended at this time. Thank you for allow me to participate in the care of your patient. History of Present Illness Reason for Consultation: PFO Requesting Physician: Dr. Llanes Attending Physician: Chau Llanes MD History of Present Illness 53-year-old male presented to the emergency department 05/01/2023 due to dizziness followed by nausea and vomiting at approximately 2 PM. In the ER, patient received TNK at 5:15 PM. MRI it demonstrating cerebellar infarct. Bedside echocardiogram with a large right to left shunt suggesting patent foramen ovale. Patient seen examined the bedside. Feeling much better today. No recurrent dizziness or nausea. No focal motor deficit. Telemetry reveals sinus rhythm. No evidence of atrial fibrillation. CT angiogram of the head and neck without significant atherosclerotic disease. Patient prescribed aspirin and statin therapy. Cardiology consultation requested for evaluation of PFO. Allergies Allergy/AdvReac Type Severity Reaction Status Date / Time No Known Allergies Allergy Mild Verified 05/27/07 10:05 Home Medications Medication Instructions Recorded Confirmed Type No Known Home Medications 05/01/23 05/01/23 History Patient History Medical History History of tobacco use Pancreatic mass Spinal stenosis Surgical History H/O splenectomy History of partial pancreatectomy History of tonsillectomy S/P cholecystectomy Family History Other Cancer Hypertension Social History Smoking Status: Never smoker Smoking End Date: 2020; Hx Alcohol Use: No Hx Substance Use: Yes Last Used Substance: Hours (ago) Last Used Substance Other:: 0900 used tincature drops Preferred Language: Tongan Communication Ability: Effective Talent Sourcing Specialist Required: No Beliefs That Will Affect Care: None Current Living Situation: Other Current Living Situation Comment: Lives with two children Other Information That Helps Us Care for You: No Feels Safe at Home: Yes Safety Concerns: Feels Safe At This Time Assistive Devices: None Review of Systems Review of Systems: All systems reviewed & are unremarkable except as noted in Subjective Physical Exam Constitutional: well nourished; no acute distress Respiratory: + respiratory distress; no labored breathing and no retractions Auscultation: lungs clear to auscultation bilaterally; no crackles, no rales, no rhonchi and no wheezes Cardiovascular: Rate/Rhythm: regular rate and regular rhythm Heart Sounds: normal S1 and normal S2; no murmur Vessels: femoral pulses present and radial pulses present; no JVD and no carotid bruit Extremities: no edema Gastrointestinal (Abdomen): Inspection/Auscultation: normal bowel sounds; abdomen not distended Percussion/Palpation: abdomen soft; abdomen nontender, no guarding and abdomen not rigid Neurologic: CN's II-XI intact bilaterally, moves all extremities and + focal motor deficit Results & Data Vital Signs (Past 12 Hours) Vital Signs Temp Pulse Pulse Resp BP Pulse Ox O2 Del Method 05/03/23 08:00 57 L 05/03/23 07:26 36.8 C 89 16 123/55 L 97 Room Air 05/03/23 03:00 37.0 C 75 18 120/71 97 Room Air 05/03/23 00:00 59 L 05/03/23 00:00 36.9 C 65 16 127/71 97 Room Air 05/02/23 23:00 36.9 C 65 16 127/71 97 Room Air Laboratory Results CBC 05/03/23 Range/Units 06:29 WBC 8.09 (4.8-10.8) K/ul RBC 4.51 L (4.70-6.10) M/uL Hgb 14.5 (14.0-18.0) g/dl Hct 42.0 (42.0-52.0) % Plt Count 298 (130-400) K/uL Neut # (Auto) 5.02 (1.40-6.50) K/uL Lymph # (Auto) 2.34 (1.20-3.40) K/uL [place] # (Auto) 0.63 H (0.11-0.59) K/uL Eos # (Auto) 0.04 (0.00-0.50) K/uL Baso # (Auto) 0.04 (0.00-0.20) K/uL Comprehensive Metabolic Panel 05/03/23 Range/Units 06:29 Sodium 139 (136-145) mmol/L Potassium 4.4 (3.5-5.1) mmol/L Chloride 107 (98-107) mmol/L Carbon Dioxide 27 (21-32) mmol/L BUN 11 (6-23) mg/dl Creatinine 0.90 (0.6-1.4) mg/dl Glucose 109 H (70-99(Fasting)) mg/dl Calcium 9.3 (8.6-10.3) mg/dl Intake and Output 05/02/23 05/03/23 05/03/23 22:59 06:59 14:59 Intake Total 240 / 1290 1000 / 1000 Output Total 750 / 2425 Balance -510 / -1135 1000 / 1000 Intake: IV 1000 / 1000 Lactated Ringer's 1,000 ml @ 90 1000 / 1000 mls/hr IV .[id number] [facility] Rx#: [id number] Oral 240 / 1290 Output: Urine 750 / 2425 Other: Weight 71.1 kg Weight Measurement Method Built in [facility]
--- NOTE | 2023-05-03 16:08 | Hospitalist Progress Note ---
Date of Service May 03, 2023 Assessment & Plan (1) Acute CVA (cerebrovascular accident): Plan: Per admitting service notes with addendum: This is a 53yo M with a PMH of past tobacco use, spinal stenosis, h/o pancreatic mass s/p distal pancreatectomy and splenectomy who presents with sudden onset dizziness, nausea and vomiting starting around 1400 today. Acute cerebrovascular accident, right cerebellum In the setting of patent foramen ovale Status post TNK Developed dizziness, nausea and vomiting Stroke alert performed, TNK administered Brain MRI: Linear band of restricted diffusion in the right cerebellar hemisphere, consistent with acute infarct Echocardiogram: Atrial septum is aneurysmal Injection of contrast documented a large interatrial shunt A patent foramen ovale is present Ejection fraction 60 to 65% Mild to moderate mitral regurgitation CT Angio head and neck: 1. There is no hemorrhage, mass effect, or evidence of acute territorial ischemia by CT criteria. 2. Unremarkable CT angiogram of the brain. 3. Unremarkable CT angiogram of the neck. 4. Bilateral thyroid nodules measure up to 2 cm. Nonemergent thyroid ultrasound is recommended in follow-up. Neurologist consulted: Recommended aspirin 81 mg daily, Lipitor 40 mg daily Barrel Assembly Inspector consulted, Dr. Terry: Recommend outpatient hypercoagulable work- up, 14-day Zio patch monitor If the studies are unrevealing, patient will require transesophageal echocardiogram Outpatient referral to structural cardiology to consider PFO closure will be arranged (2) Thyroid nodule: Plan: Incidental finding on CT angiogram of the neck: Bilateral thyroid nodules measure up to 2 cm. Nonemergent thyroid ultrasound is recommended in follow-up. Please refer to full report in the Ordered Studies section above Further work up, management, and ff up as outpatient (3) Spinal stenosis: Plan: PRN Tylenol Code status: FULL Disposition Discharge to home Follow-up with PCP in 1 week Follow-up with type cutter in 1 to 2 weeks Follow-up with neurologist in 4 weeks plan of care discussed with patient in detail and at length all questions answered he is understanding, agreeable, comfortable with the plan of care Admission and Anticipated Discharge Date Admission Date: May 01, 2023 Subjective ff up for acute CVA, etc seen resting in bed, comfortable in good spirits states he feels fine overall denies dizziness, nausea/vomiting, weakness, or any other neuro deficits No other new symptoms States he is ready for discharge today Review of Systems Review of Systems: all noted and negative except for above Physical Exam Physical Exam: General- oriented x 3, not in distress, speaks in sentences with no effort or accessory muscle use Eyes- anicteric Neck- no JVD Lungs- clear breath sounds bilaterally, no rales/wheezes Heart- normal rate, regular rhythm; no murmurs Abdomen- normal bowel sounds, nondistended, soft, nontender Extremities- no pretibial edema, no calf tenderness Neuro- alert, oriented x 3; no gross focal neurologic deficits Skin- warm & dry Results & Data Results & Data Vital Signs (Past 12 Hours) Vital Signs Temp Pulse Pulse Resp BP BP Pulse Ox 05/03/23 14:17 36.8 C 60 18 138/63 139/64 99 05/03/23 11:00 36.8 C 60 18 138/63 99 05/03/23 08:00 57 L 05/03/23 07:26 36.8 C 89 16 123/55 L 97 O2 Del Method 05/03/23 14:17 05/03/23 11:00 Room Air 05/03/23 08:00 05/03/23 07:26 Room Air all noted and reviewed including below
--- NOTE | 2023-05-03 16:14 | Discharge Summary ---
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 Was outside power washing and came inside to have some water and developed sudden onset dizziness, nausea and vomiting when he stood up. Also felt off balance. Was brought in by EMS and was seen in the ED as a stroke alert. Evaluated by Dr. Hallman who is on for telestroke at [facility] who recommended administration of TNK. Currently feels generally weak but denies any F/C, headache, CP, SOB, N/V, abdominal pain, dysuria, diarrhea or constipation. Only home medications include PRN Tylenol and ibuprofen. Quit smoking 2.5 years ago. No personal or known family history of stroke. 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 Acute cerebrovascular accident, right cerebellum In the setting of patent foramen ovale Status post TNK Developed dizziness, nausea and vomiting Stroke alert performed, TNK administered Brain MRI: Linear band of restricted diffusion in the right cerebellar hemisphere, consistent with acute infarct Echocardiogram: Atrial septum is aneurysmal Injection of contrast documented a large interatrial shunt A patent foramen ovale is present Ejection fraction 60 to 65% Mild to moderate mitral regurgitation CT Angio head and neck: 1. There is no hemorrhage, mass effect, or evidence of acute territorial ischemia by CT criteria. 2. Unremarkable CT angiogram of the brain. 3. Unremarkable CT angiogram of the neck. 4. Bilateral thyroid nodules measure up to 2 cm. Nonemergent thyroid ultrasound is recommended in follow-up. Neurologist consulted: Recommended aspirin 81 mg daily, Lipitor 40 mg daily Red Lead Burner consulted, Dr. Terry: Recommend outpatient hypercoagulable work- up, 14-day Zio patch monitor If the studies are unrevealing, patient will require transesophageal echocardiogram Outpatient referral to structural cardiology to consider PFO closure will be arranged (2) Thyroid nodule: Incidental finding on CT angiogram of the neck: Bilateral thyroid nodules measure up to 2 cm. Nonemergent thyroid ultrasound is recommended in follow-up. Please refer to full report in the Ordered Studies section above Further work up, management, and ff up as outpatient (3) Spinal stenosis: PRN Tylenol Code status: FULL Disposition Discharge to home Follow-up with PCP in 1 week Follow-up with crime scene analyst in 1 to 2 weeks Follow-up with neurologist in 4 weeks plan of care discussed with patient in detail and at length all questions answered he is understanding, agreeable, comfortable with the plan of care Discharge Exam General- oriented x 3, not in distress, speaks in sentences with no effort or accessory muscle use Eyes- anicteric Neck- no JVD Lungs- clear breath sounds bilaterally, no rales/wheezes Heart- normal rate, regular rhythm; no murmurs Abdomen- normal bowel sounds, nondistended, soft, nontender Extremities- no pretibial edema, no calf tenderness Neuro- alert, oriented x 3; no gross focal neurologic deficits Skin- warm & dry Updated Medication List Medication Instructions Recorded Confirmed Type aspirin 81 mg tablet,delayed 81 mg PO Q24H 30 days #30 tabs 05/03/23 Rx release atorvastatin 40 mg tablet 40 mg PO HS 30 days #30 tabs 05/03/23 Rx Hospital Stay Data Consultations 05/01/23 17:31 ED Decision to Admit Stat 05/01/23 18:14 Consult Community Re[employer]ment Act Officer Routine Consult Neurology Routine 05/02/23 17:46 Consult Cardiology Routine Diagnostic Imagining Performed Chest X-Ray 05/01/23 16:15 XR chest 1V portable CLINICAL HISTORY: neuro deficit, acute stroke suspected TECHNIQUE: Single frontal radiograph of the chest was obtained. Comparison: None available at the time of this dictation. FINDINGS: No lines and tubes are seen. The cardiomediastinal silhouette is normal. The lungs are clear. No evidence of pleural effusion or pneumothorax. IMPRESSION: No acute chest disease. ACT 112: Negative or not required by law. Electronically signed by: Steven Garcia M.D. 05/01/2023 5:47 PM Head CTA 05/01/23 16:[address] OF THE BRAIN; CT ANGIOGRAM OF THE BRAIN; CT ANGIOGRAM OF THE NECK CLINICAL HISTORY: Neurological deficit. Stroke like symptoms. COMPARISON STUDY: No priors. TECHNIQUE: Unenhanced axial CT scan of the brain is performed. Subsequently, following the IV administration of 111 of Optiray 350, CT angiogram of the head and neck was performed from the aortic arch to the vertex. Images are reviewed in the axial, sagittal, and coronal planes. 3-D MIPS images are created and assessed. IV contrast was administered without complication. All measurements were calculated based on NASCET criteria. A dose lowering technique was utilized adhering to the principles of ALARA. CT DOSE: 1294.17 mGy.cm FINDINGS: Brain parenchyma: There is no hemorrhage, mass effect, or evidence of acute territorial ischemia by CT criteria. There is no evidence of enhancing mass lesion on the angiogram phase images. The ventricles, sulci, and cisterns are normal in configuration. Cisneros-white matter differentiation is preserved. There is a small chronic lacunar infarct in the left cerebellar hemisphere. No extra- axial fluid collection is seen. Thoracic aorta: Visualized portions of the thoracic aorta are normal in caliber. The aortic arch demonstrates standard 3-vessel anatomy. Right carotid arterial system: The right common carotid artery is widely patent, as are the right internal and external carotid arteries. Left carotid arterial system: The left common carotid artery is widely patent, as is the left internal and external carotid arteries. Vertebral arteries: The vertebral arteries are widely patent bilaterally noting right-sided dominance. The left vertebral artery is diminutive. Subclavian arteries: Widely patent bilaterally. Intracranial vasculature: There is moderate atherosclerotic calcification of the cavernous carotid arteries. The [place] of [place] is developmentally complete. The internal carotid arteries are patent at the skull base, as are the anterior and middle cerebral arteries bilaterally. The vertebrobasilar system and posterior cerebral arteries are widely patent. The right vertebral artery is dominant. The intracranial left vertebral artery is diminutive. There is no aneurysm, high-grade stenosis, or focal vessel cut off seen throughout the intracranial circulation. Jugular veins: Patent bilaterally. Dural sinuses: Patent. Lung apices: Partially visualized upper lobe lung parenchyma appears clear. Soft tissues: The visualized pharyngeal soft tissues are normal in appearance noting angiographic phase technique. The oropharyngeal airway appears widely patent. There are numerous bilateral thyroid nodules which measure up to 2.0 cm. Calcified sialoliths are noted in the right parotid gland. The salivary glands are otherwise normal in appearance. No cervical lymphadenopathy is seen. Skeletal structures: The calvarium appears intact. The cervical spine is maintained noting mild multilevel spondylosis. Orbits: The bony orbits are intact. Orbital contents are normal as visualized. Sinuses and mastoids: Retention cysts within the maxillary antra measure up to 3.2 cm. The remaining paranasal sinuses are clear. The mastoid air cells are well pneumatized. IMPRESSION: 1. There is no hemorrhage, mass effect, or evidence of acute territorial ischemia by CT criteria. 2. Unremarkable CT angiogram of the brain. 3. Unremarkable CT angiogram of the neck. 4. Bilateral thyroid nodules measure up to 2 cm. Nonemergent thyroid ultrasound is recommended in follow-up. ACT 112: Negative or not required by law. Electronically signed by: Mac Killian M.D. 05/01/2023 4:52 PM Neck CTA 05/01/23 16:[address] OF THE BRAIN; CT ANGIOGRAM OF THE BRAIN; CT ANGIOGRAM OF THE NECK CLINICAL HISTORY: Neurological deficit. Stroke like symptoms. COMPARISON STUDY: No priors. TECHNIQUE: Unenhanced axial CT scan of the brain is performed. Subsequently, following the IV administration of 111 of Optiray 350, CT angiogram of the head and neck was performed from the aortic arch to the vertex. Images are reviewed in the axial, sagittal, and coronal planes. 3-D MIPS images are created and assessed. IV contrast was administered without complication. All measurements were calculated based on NASCET criteria. A dose lowering technique was utilized adhering to the principles of ALARA. CT DOSE: 1294.17 mGy.cm FINDINGS: Brain parenchyma: There is no hemorrhage, mass effect, or evidence of acute territorial ischemia by CT criteria. There is no evidence of enhancing mass lesion on the angiogram phase images. The ventricles, sulci, and cisterns are normal in configuration. Cisneros-white matter differentiation is preserved. There is a small chronic lacunar infarct in the left cerebellar hemisphere. No extra- axial fluid collection is seen. Thoracic aorta: Visualized portions of the thoracic aorta are normal in caliber. The aortic arch demonstrates standard 3-vessel anatomy. Right carotid arterial system: The right common carotid artery is widely patent, as are the right internal and external carotid arteries. Left carotid arterial system: The left common carotid artery is widely patent, as is the left internal and external carotid arteries. Vertebral arteries: The vertebral arteries are widely patent bilaterally noting right-sided dominance. The left vertebral artery is diminutive. Subclavian arteries: Widely patent bilaterally. Intracranial vasculature: There is moderate atherosclerotic calcification of the cavernous carotid arteries. The [place] of [place] is developmentally complete. The internal carotid arteries are patent at the skull base, as are the anterior and middle cerebral arteries bilaterally. The vertebrobasilar system and posterior cerebral arteries are widely patent. The right vertebral artery is dominant. The intracranial left vertebral artery is diminutive. There is no aneurysm, high-grade stenosis, or focal vessel cut off seen throughout the intracranial circulation. Jugular veins: Patent bilaterally. Dural sinuses: Patent. Lung apices: Partially visualized upper lobe lung parenchyma appears clear. Soft tissues: The visualized pharyngeal soft tissues are normal in appearance noting angiographic phase technique. The oropharyngeal airway appears widely patent. There are numerous bilateral thyroid nodules which measure up to 2.0 cm. Calcified sialoliths are noted in the right parotid gland. The salivary glands are otherwise normal in appearance. No cervical lymphadenopathy is seen. Skeletal structures: The calvarium appears intact. The cervical spine is maintained noting mild multilevel spondylosis. Orbits: The bony orbits are intact. Orbital contents are normal as visualized. Sinuses and mastoids: Retention cysts within the maxillary antra measure up to 3.2 cm. The remaining paranasal sinuses are clear. The mastoid air cells are well pneumatized. IMPRESSION: 1. There is no hemorrhage, mass effect, or evidence of acute territorial ischemia by CT criteria. 2. Unremarkable CT angiogram of the brain. 3. Unremarkable CT angiogram of the neck. 4. Bilateral thyroid nodules measure up to 2 cm. Nonemergent thyroid ultrasound is recommended in follow-up. ACT 112: Negative or not required by law. Electronically signed by: Mac Killian M.D. 05/01/2023 4:52 PM Brain MRI 05/01/23 18:14 Exam(s): MRI HEAD W/WO Contrast IV Amt: 7ml gadavist EXAM: MR Head Without and With Intravenous Contrast CLINICAL HISTORY: Reason for exam: stroke alert. TECHNIQUE: Magnetic resonance images of the head/brain without and with intravenous contrast in multiple planes. CONTRAST: Patient received 7ml gadavist of IV contrast COMPARISON: No relevant prior studies available. FINDINGS: Brain: There is a linear band of restricted diffusion seen in the right cerebellar hemisphere. No hemorrhage. Ventricles: Unremarkable. No ventriculomegaly. Bones/joints: Unremarkable. Sinuses: Unremarkable as visualized. No acute sinusitis. Mastoid air cells: Unremarkable as visualized. No mastoid effusion. Orbits: Unremarkable as visualized. IMPRESSION: Linear band of restricted diffusion in the right cerebellar hemisphere, consistent with acute infarct Electronically signed by: Rashi Hyatt MD 05/01/23 22:13 PM Venous Doppler Study 05/02/23 12:55 BILATERAL LOWER EXTREMITY VENOUS DOPPLER HISTORY: Lower extremity swelling. r/o dvt COMPARISON STUDY: None. FINDINGS: There is normal compressibility, flow, and augmentation within the bilateral lower extremity deep venous systems. IMPRESSION: No DVT within the right or left lower extremity. ACT 112: Negative or not required by law. Electronically signed by: Timmy Damian M.D. 05/02/2023 3:[address] 05/02/23 17:[address] DOSE: 625.80 mGy.cm HISTORY: 24 hour post TNK- eval for bleed conversion TECHNIQUE: Multiaxial CT images of the head were performed without the use of intravenous contrast. Automated exposure control was utilized for this study. A dose lowering technique was utilized adhering to the principles of ALARA. Comparison: Head CT 05/01/2023. Findings: Maxillary sinus retention cysts are again noted. The mastoid air cells are clear. The 2.5 cm hypodense focus at the right cerebellar hemisphere consistent with an evolving infarct seen on the prior brain MRI. 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 No intracranial hemorrhage identified. No mass effect or midline shift. No additional infarcts within the brain. 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 No evidence for hemorrhagic transformation. ACT 112: Negative or not required by law. Electronically signed by: Timmy Damian M.D. 05/02/2023 6:06 PM 05/01/23 16:15 CT angio head w con Stat CT angio neck with con Stat CT head/brain wo con Stat 05/01/23 18:14 MR brain wo/w con Routine 05/02/23 12:55 US venous doppler LE BI Urgent 05/02/23 17:30 CT head/brain wo con Stat Pending Results Patient Have Any Pending Studies at Discharge: No Discharge Instructions Given to Patient (Per Discharging Provider) PLEASE REFER TO YOUR NEW MEDICATION LIST AND FOLLOW INSTRUCTIONS CAREFULLY. YOUR NEW MEDICATIONS INCLUDE: Aspirin, Lipitor-for stroke prevention FOLLOW UP WITH PRIMARY CARE PHYSICIAN OUTLINED ABOVE. FOLLOW UP WITH INTERN BRAND AND NEUROLOGIST OUTLINED ABOVE. Who to Call and When: Medical Emergencies: Call 911 immediately if you experience any of the following warning signs and symptoms of Stroke: Sudden numbness or weakness of the face, arm or leg, especially on one side of the body Sudden confusion, trouble speaking or understanding Sudden trouble seeing in one or both eyes Sudden trouble walking, dizziness, loss of balance or coordination Sudden severe headache with no cause Do not delay calling 911 if you experience any warning signs or symptoms of a stroke. Delay in seeking medical attention may affect what treatments can be given to you. Risk Factors for Stroke: You can reduce your chances of stroke by working with your medical provider to adopt a healthy lifestyle. Some specific ways to lower your chance of stroke are: If you are a smoker, now is the time to stop smoking cigarettes If you are diabetic, improve the control of your blood sugars Avoid excessive amounts of alcohol Control high blood pressure Lose weight if you are overweight Be sure to lead an active lifestyle Eat a healthy diet low in salt, cholesterol and fat You should know about other risk factors for stroke that you are unable to control. These include: Age 55 years or older Male gender Certain racial groups: , or / Family History of Stroke, Mini stroke or Heart Attack Sickle Cell Disease Follow Up: It is important for you to keep your follow up appointments with your medical provider. Total Time Total Time Spent Total Time Spent (In Minutes): >30 minutes
[2023-05-09 03:28] LABS: Anti Cardiolipin Ab IgG <2.0 GPL-U/mL; Anti Cardiolipin Ab IgM <2.0 MPL-U/mL; Anti-Thrombin III Activity 109 % normal (80-135); B2 Glycoprotein IgG <2.0 U/mL (<20.0); B2 Glycoprotein IgM 2.3 U/mL (<20.0); PTT LA Screen 33 sec (<=40); Protein S Functional(Activity) 91 % normal (70-150)
== END 2023-05-03 16:03 | disposition home or self-care (01) | DRG 62 ==
LOC: ED 15:44 → 1E 17:38 → SUATTDRO 17:38 → 1E 18:05 → 2E 05-02 19:12